=== PATIENT | female | born 1960 | race Caucasian/White ===

== ENCOUNTER 2016-12-27 10:48 | Inpatient (IN) | payer MEDICARE, OTHER ==
--- NOTE | 2016-12-27 12:37 | ED ---
Recheck HPI - General Source: patient, RN notes reviewed Mode of arrival: ambulatory Limitations: no limitations <Chelsey Marrero - Last Filed: 12/27/16 13:44> <Brian Wolf - Last Filed: 12/27/16 13:56> - General Chief Complaint: Recheck/Abnormal Lab/Rx Stated Complaint: SODIUM LOW Time Seen by Provider: 12/27/16 11:49 - History of Present Illness Initial Comments: Patient is a 56-year-old female since emergency room for evaluation. Patient states she has not been feeling himself for the past 2 weeks. Patient states out of the primary care provider last Wednesday and was told that her sodium was very low. Patient states she is on fluid restriction had labs redrawn on Wednesday. Patient states she got a phone call today stating that she needs to come to the emergency room because of low sodium. Patient denies chest pain. Patient denies shortness of breath. Patient denies nausea or vomiting. Patient denies abdominal pain. 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 Patient denies any history of any issues with her kidneys. She denies pain or burning during urination, trouble urinating or blood in urine. ( Chelsey Marrero) - Related Data Home Medications Medication Instructions Recorded Confirmed ALPRAZolam [Xanax] 1 mg PO DAILY PRN 03/15/16 12/27/16 traZODone HCL 100 mg PO HS 03/15/16 12/27/16 Divalproex Sodium [Depakote] 500 mg PO BID 12/27/16 12/27/16 FLUoxetine HCL [PROzac] 10 mg PO DAILY 12/27/16 12/27/16 Linaclotide [Linzess] 290 mcg PO QAM 12/27/16 12/27/16 traMADol HCl [Ultram] 50 mg PO DAILY PRN 12/27/16 12/27/16 Previous Rx's Medication Instructions Recorded OXcarbazepine [Trileptal] 300 mg PO BID tab 03/17/16 Allergies Allergy/AdvReac Type Severity Reaction Status Date / Time codeine Allergy Rash/Hives Verified 12/27/16 11:57 Review of Systems ROS Other: All systems not noted in ROS Statement are negative. <Chelsey Marrero - Last Filed: 12/27/16 13:44> ROS Other: All systems not noted in ROS Statement are negative. <JoBrian plummer - Last Filed: 12/27/16 13:56> ROS Statement: Those systems with pertinent positive or pertinent negative responses have been documented in the HPI. 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 History of Any Multi-Drug Resistant Organisms: None Reported Past Surgical History: Appendectomy, Bowel Resection, Cholecystectomy, Hysterectomy Additional Past Surgical History / Comment(s): rotator cuff repair. Past Anesthesia/Blood Transfusion Reactions: No Reported Reaction Past Psychological History: Anxiety, Bipolar, Depression Additional Psychological History / Comment(s): at time of admission pt denies having any problem with depression Smoking Status: Current every day smoker Past Alcohol Use History: None Reported Additional Past Alcohol Use History / Comment(s): pt states she is trying to quit smoking and is currently smoking 2 ppd Past Drug Use History: None Reported Additional Drug Use History / Comment(s): smoked last -- - Past Family History Father Family Medical History: Hypertension Mother Additional Family Medical History / Comment(s): Macular degeneration <Chelsey Marrero - Last Filed: 12/27/16 13:44> General Exam Limitations: no limitations General appearance: alert, in no apparent distress Head exam: Present: atraumatic, normocephalic, normal inspection Eye exam: Present: normal appearance ENT exam: Present: normal exam Neck exam: Present: normal inspection Respiratory exam: Present: normal lung sounds bilaterally. Absent: respiratory distress Cardiovascular Exam: Present: regular rate, normal rhythm, normal heart sounds GI/Abdominal exam: Present: soft, normal bowel sounds. Absent: distended, tenderness, guarding, rebound, rigid Extremities exam: Present: normal inspection Back exam: Present: normal inspection Neurological exam: Present: alert, oriented X3, CN II-XII intact, normal gait Psychiatric exam: Present: normal affect, normal mood Skin exam: Present: warm, dry, intact, normal color. Absent: rash <Chelsey Marrero - Last Filed: 12/27/16 13:44> General appearance: alert, in no apparent distress Head exam: Present: atraumatic, normocephalic, normal inspection Eye exam: Present: normal appearance, PERRL, EOMI. Absent: scleral icterus, conjunctival injection, periorbital swelling ENT exam: Present: normal exam, mucous membranes moist Neck exam: Present: normal inspection. Absent: tenderness, meningismus, lymphadenopathy Respiratory exam: Present: normal lung sounds bilaterally. Absent: respiratory distress, wheezes, rales, rhonchi, stridor Cardiovascular Exam: Present: regular rate, normal rhythm, normal heart sounds. Absent: systolic murmur, diastolic murmur, rubs, gallop, clicks GI/Abdominal exam: Present: soft, normal bowel sounds. Absent: distended, tenderness, guarding, rebound, rigid Extremities exam: Present: normal inspection, full ROM, normal capillary refill. Absent: tenderness, pedal edema, joint swelling, calf tenderness Back exam: Present: normal inspection Neurological exam: Present: alert, oriented X3, CN II-XII intact Psychiatric exam: Present: normal affect, normal mood Skin exam: Present: warm, dry, intact, normal color. Absent: rash <Brian Wolf - Last Filed: 12/27/16 13:56> - General Exam Comments Initial Comments: Sitting in exam room, no distress. (Chelsey Marrero) Course <Chelsey Marrero - Last Filed: 12/27/16 13:44> <Brian Wolf - Last Filed: 12/27/16 13:56> Vital Signs 12/27/16 11:08 Temperature 97 F L Pulse Rate 88 Respiratory 20 Rate Blood Pressure 111/7 O2 Sat by Pulse 99 Oximetry - Reevaluation(s) Reevaluation #1: 12/27/16 13:56 Patient remains without complaint, no neurological complaints, weak (Brian Wolf) Medical Decision Making - Lab Data Result diagrams: 12/27/16 12:49 12/27/16 12:49 <Chelsey Marrero - Last Filed: 12/27/16 13:44> - Lab Data Result diagrams: 12/27/16 12:49 12/27/16 12:49 <Brian Wolf - Last Filed: 12/27/16 13:56> - Medical Decision Making 48 female here for evaluation, patient with a near for evaluation of abnormal lab, hyponatremia, patient be admitted for correcting of sodium (Brian Wolf) - Lab Data Lab Results 12/27/16 12/27/16 12/27/16 Range/Units 12:49 12:49 12:58 WBC 4.6 (3.8-10.6) k/uL RBC 3.62 L (3.80-5.40) m/uL Hgb 12.2 (11.4-16.0) gm/dL Hct 34.9 (34.0-46.0) % MCV 96.3 (80.0-100.0) fL MCH 33.7 (25.0-35.0) pg MCHC 35.0 (31.0-37.0) g/dL RDW 12.5 (11.5-15.5) % Plt Count 264 (150-450) k/uL Neutrophils % 54 % Lymphocytes % 34 % Monocytes % 7 % Eosinophils % 1 % Basophils % 1 % Neutrophils # 2.5 (1.3-7.7) k/uL Lymphocytes # 1.6 (1.0-4.8) k/uL Monocytes # 0.3 (0-1.0) k/uL Eosinophils # 0.0 (0-0.7) k/uL Basophils # 0.1 (0-0.2) k/uL Sodium 119 L* (137-145) mmol/L Potassium 4.8 (3.5-5.1) mmol/L Chloride 88 L (98-107) mmol/L Carbon Dioxide 25 (22-30) mmol/L Anion Gap 6 mmol/L BUN 10 (7-17) mg/dL Creatinine 0.66 (0.52-1.04) mg/dL Est GFR (MDRD) Af Amer >60 (>60 ml/min/1.73 sqM) Est GFR (MDRD) Non-Af >60 (>60 ml/min/1.73 sqM) Glucose 82 (74-99) mg/dL Calcium 8.8 (8.4-10.2) mg/dL Total Bilirubin 0.4 (0.2-1.3) mg/dL AST 31 (14-36) U/L ALT 22 (9-52) U/L Alkaline Phosphatase 69 (38-126) U/L Total Protein 7.2 (6.3-8.2) g/dL Albumin 4.0 (3.5-5.0) g/dL Urine Color Yellow Urine Appearance Clear (Clear) Urine pH 7.0 (5.0-8.0) Ur Specific [place] 1.009 (1.001-1.035) Urine Protein Negative (Negative) Urine Glucose (UA) Negative (Negative) Urine Ketones Trace H (Negative) Urine Blood Negative (Negative) Urine Nitrite Negative (Negative) Urine Bilirubin Negative (Negative) Urine Urobilinogen <2.0 (<2.0) mg/dL Ur Leukocyte Esterase Negative (Negative) Disposition Decision Date: 12/27/16 <Chelsey Marrero - Last Filed: 12/27/16 13:44> <Brian Wolf - Last Filed: 12/27/16 13:56> Clinical Impression: Hyponatremia Disposition: ADMITTED IP TO THIS HOSP Condition: Stable Referrals: Emigdio Bagley MD [Primary Care Provider] - 1-2 days
[2016-12-27 13:03] LABS: Basophils # (A) 0.1 k/uL (0-0.2); Basophils % (A) 1 %; CH 34.3; CHCM 35.7; Eosinophils % (A) 1 %; HCT 34.9 % (34.0-46.0); HGB 12.2 gm/dL (11.4-16.0); Luc # (Auto) 0.14; Luc % (Auto) 3; Lymphocytes # (A) 1.6 k/uL (1.0-4.8); Lymphocytes % (A) 34 %; MCH 33.7 pg (25.0-35.0); MCV 96.3 fL (80.0-100.0); Mean Platelet Volume 7.1; Monocytes # (A) 0.3 k/uL (0-1.0); Monocytes % (A) 7 %; Neutrophils # (A) 2.5 k/uL (1.3-7.7); Neutrophils % (A) 54 %; RBC 3.62 m/uL (3.80-5.40); RDW 12.5 % (11.5-15.5); WBC 4.6 k/uL (3.8-10.6); WBC (Perox) 4.44
[2016-12-27 13:04] LABS: Appearance,Urine Clear (Clear); Bilirubin,Urine Negative (Negative); Glucose,Urine (UA) Negative (Negative); Ketones,Urine Trace (Negative); Leukocyte Esterase,Urine Negative (Negative); Nitrite,Urine Negative (Negative); Protein,Urine Negative (Negative); Specific Gravity,Urine 1.009 (1.001-1.035); UA Billing (MACRO vs. MICRO) CHEM; Urobilinogen,Urine <2.0 mg/dL (<2.0)
[2016-12-27 13:08] LABS: ALT 22 U/L (9-52); AST 31 U/L (14-36); Alkaline Phosphatase 69 U/L (38-126); Anion Gap 6 mmol/L; Blood Urea Nitrogen 10 mg/dL (7-17); Calcium 8.8 mg/dL (8.4-10.2); Carbon Dioxide 25 mmol/L (22-30); Chloride 88 mmol/L (98-107); Glucose 82 mg/dL (74-99); Non-African American GFR(MDRD) >60 (>60 ml/min/1.73 sqM); Potassium 4.8 mmol/L (3.5-5.1); Total Bilirubin 0.4 mg/dL (0.2-1.3); Total Protein 7.2 g/dL (6.3-8.2)
[2016-12-27 13:12] LABS: Sodium 119 mmol/L (137-145)
[2016-12-27] MEDS ORDERED: ONDANSETRON 4 MG/2 ML VIAL IVP PRN (13:45)
[2016-12-27] MEDS ORDERED: IBUPROFEN 400 MG TAB PO PRN (13:45)
[2016-12-27] MEDS ORDERED: NALOXONE 0.4 MG/ML 1 ML VIAL IV PRN (13:45)
[2016-12-27] MEDS ORDERED: ACETAMINOPHEN TAB 325 MG TAB PO PRN (13:45)
[2016-12-27] MEDS ORDERED: ALPRAZolam 0.5 MG TAB PO PRN (15:05)
[2016-12-27] MEDS ORDERED: traMADol 50 MG TAB PO PRN (15:05)
[2016-12-27] MEDS: SODIUM CHLORIDE 0.9% 1,000 ML IV SCH (15:40)
[2016-12-27 18:17] LABS: Creatinine,Urine Random 68.7 mg/dL
[2016-12-27 18:30] LABS: Potassium 4.5 mmol/L (3.5-5.1); Uric Acid 1.1 mg/dL (3.7-7.4)
[2016-12-27] MEDS: OXcarbazepine 300 MG TAB PO SCH (21:15)
[2016-12-27] MEDS: DIVALPROEX 500 MG TABLET.DR PO SCH (21:16)
[2016-12-27] MEDS: traZODone HCL 100 MG TAB PO SCH (22:46)
[2016-12-27] MEDS: QUEtiapine XR 200 MG TAB.ER.24H PO SCH (22:46)
[2016-12-27 22:49] LABS: Potassium 4.3 mmol/L (3.5-5.1)
--- NOTE | 2016-12-27 23:51 | HP ---
DATE OF ADMISSION: 12/27/2016 A 56-year-old white female with hyponatremia and weakness. HISTORY OF PRESENT ILLNESS: This is a 56-year-old white female, history of bipolar disorder and seizure disorder, has been on the same medicines for the past 2 years, developed hyponatremia 3 weeks ago. Her private doctor sent her to the emergency room today due to hyponatremia. Sodium was very low. She has been on fluid restriction. She states she drinks 6 to 8 drinks of water a day in big large glasses. Denies burning of the urine, trouble with urination. MEDICATIONS: 1. Xanax 1 mg daily. 2. Trazodone 100 daily. 3. Depakote 500 b.i.d. 4. Prozac 10 mg daily. 5. Linzess 290 daily. 6. Tramadol 50 mg daily. ALLERGIES: CODEINE. REVIEW OF SYSTEMS: A 14-point review of systems is negative except for the weakness. PAST MEDICAL HISTORY: 2 packs a day smoking. No alcohol or illicit drugs. FAMILY HISTORY: Father with hypertension. Mother with macular degeneration. PHYSICAL EXAM: VITAL SIGNS: Stable, afebrile. Temperature 97, pulse 88, respirations 18 to 20. CARDIOVASCULAR: S1, S2. LUNGS: Clear. GI: Soft. HEMATOLOGIC: Negative Homans. EXTREMITIES: No cyanosis, clubbing, edema. PSYCHIATRIC: Fair mood and normal affect. NEUROLOGIC: Alert and oriented x3. VASCULAR: Normal dorsalis pedis, posterior tibial, and radial pulse. OPHTHALMOLOGIC: Pupils equal, round and accommodation. She is in no acute distress. ASSESSMENT: 1. Hyponatremia. 2. Weakness secondary to above. 3. Bipolar disorder. 4. Seizure disorder. PLAN: Slow rehydration with normal saline at 75 an hour. Consult with renal physician for hyponatremia. Check labs in the morning.
[2016-12-28 02:55] LABS: Anion Gap 5 mmol/L; Blood Urea Nitrogen 10 mg/dL (7-17); Calcium 8.9 mg/dL (8.4-10.2); Carbon Dioxide 23 mmol/L (22-30); Chloride 91 mmol/L (98-107); Glucose 78 mg/dL (74-99); Non-African American GFR(MDRD) >60 (>60 ml/min/1.73 sqM); Potassium 4.6 mmol/L (3.5-5.1); Total Bilirubin 0.3 mg/dL (0.2-1.3); Total Protein 6.3 g/dL (6.3-8.2)
[2016-12-28 02:56] LABS: ALT 29 U/L (9-52); AST 25 U/L (14-36); Alkaline Phosphatase 94 U/L (38-126)
[2016-12-28 03:26] LABS: Sodium 119 mmol/L (137-145)
[2016-12-28] MEDS ORDERED: TOLVAPTAN 15 MG 1/2 TABLET PO ONE (06:19)
[2016-12-28] MEDS: SODIUM CHLORIDE 0.9% 1,000 ML IV SCH (06:58)
[2016-12-28] MEDS ORDERED: NON-FORMULARY DRUG (Linaclotide [Linzess] 290 MCG) PO SCH (09:00)
[2016-12-28] MEDS: FLUoxetine HCL 10 MG CAP PO SCH (09:08)
[2016-12-28] MEDS: OXcarbazepine 300 MG TAB PO SCH ×2 (09:09→22:07)
[2016-12-28] MEDS: DIVALPROEX 500 MG TABLET.DR PO SCH ×2 (09:09→20:50)
[2016-12-28 10:39] LABS: Basophils % (A) 0 %; CHCM 34.2; Eosinophils # (A) 0.1 k/uL (0-0.7); Eosinophils % (A) 1 %; HDW 2.14; HGB 12.9 gm/dL (11.4-16.0); Luc # (Auto) 0.09; Luc % (Auto) 2; Lymphocytes # (A) 0.9 k/uL (1.0-4.8); Lymphocytes % (A) 16 %; MCH 33.1 pg (25.0-35.0); MCHC 33.2 g/dL (31.0-37.0); MCV 99.8 fL (80.0-100.0); Mean Platelet Volume 6.9; Monocytes # (A) 0.3 k/uL (0-1.0); Monocytes % (A) 5 %; Neutrophils # (A) 4.4 k/uL (1.3-7.7); Neutrophils % (A) 77 %; WBC 5.7 k/uL (3.8-10.6); WBC (Perox) 5.46
[2016-12-28 10:58] LABS: Anion Gap 7 mmol/L; Calcium 9.2 mg/dL (8.4-10.2); Carbon Dioxide 23 mmol/L (22-30); Chloride 95 mmol/L (98-107); Glucose 90 mg/dL (74-99); Non-African American GFR(MDRD) >60 (>60 ml/min/1.73 sqM); Sodium 125 mmol/L (137-145); Total Bilirubin 0.6 mg/dL (0.2-1.3); Total Protein 7.2 g/dL (6.3-8.2)
[2016-12-28 11:04] LABS: AST 28 U/L (14-36); Blood Urea Nitrogen 10 mg/dL (7-17); Potassium 4.8 mmol/L (3.5-5.1)
[2016-12-28 11:05] LABS: ALT 22 U/L (9-52); Alkaline Phosphatase 64 U/L (38-126)
[2016-12-28] MEDS: DOCUSATE 100 MG CAP PO SCH ×2 (13:03→20:50)
--- NOTE | 2016-12-28 13:55 | CONS ---
DATE OF CONSULTATION: 12/28/2016 REASON FOR CONSULT: Hyponatremia. HISTORY OF PRESENT ILLNESS: Patient is a 56-year-old female with a history of seizures, maintained on Depakote and Trileptal. Patient was admitted to the hospital for abnormally low sodium done as outpatient through her primary care physician's office. Patient stated she had been feeling slightly weak prior to her admission, she did state that she has had low sodium levels on and off previously. Her sodium was at 119 mEq/L at the time of admission. Patient did get normal saline and she had worsened. Her urine osmolality was on the high side at 340 and patient did get a dose of tolvaptan around 6 in the morning. She is currently not on any IV fluids and her sodium came up to 125 mEq/L. PAST MEDICAL HISTORY: Anxiety, depression, bipolar disorder, history of bowel obstruction, constipation. PAST SURGICAL HISTORY: Appendectomy, bowel resection, cholecystectomy, hysterectomy, rotator cuff repair. SOCIAL HISTORY: Positive for smoking, no history of drug abuse or alcohol abuse. Medications at home included Xanax, trazodone, Depakote, Prozac, Linzess, Ultram, Trileptal. ALLERGIES: None. REVIEW OF SYSTEMS: As per day HPI, other systems negative. On examination, patient is comfortable, awake, alert, oriented x3, not in any acute distress. Blood pressure is 128/76, heart rate 73 per minute. She is afebrile. Examination of the heart S1 and S2. Examination of the lungs, bilateral breath sounds are heard. Abdomen is soft, nontender. Examination of the lower extremities shows no evidence of edema. 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 Labs show sodium up to 125, potassium 4.8. Hemoglobin 12.9 g/dL. ASSESSMENT: 1. Euvolemic hyponatremia secondary to syndrome of inappropriate antidiuretic hormone secretion, status post one dose of Samsca, currently significantly improved. I will hold off on significant fluid restriction since patient just got the Samsca this morning. At the time of discharge she should be placed again on fluid restriction and she may need small dose of demeclocycline as outpatient. We will repeat another sodium level in 6 hours time and hopefully patient can be discharged by tomorrow. 2. Asthma, currently controlled. 3. History of constipation and history of bowel obstruction, currently stable. PLAN: Repeat sodium in about 6 hours avoid. Avoid strict fluid restriction in the setting of Samsca to avoid rapid increase in serum sodium level and hopefully patient can be discharged by tomorrow. Thank you for this consultation. Will continue to follow the patient with you during her hospitalization.
[2016-12-28 16:41] LABS: Potassium 5.1 mmol/L (3.5-5.1)
[2016-12-28] MEDS ORDERED: DEXTROSE 5% IN WATER 1,000 ML IV ONE (16:56)
[2016-12-28 21:54] LABS: Potassium 4.3 mmol/L (3.5-5.1)
[2016-12-28] MEDS: QUEtiapine XR 200 MG TAB.ER.24H PO SCH (22:07)
[2016-12-28] MEDS: traZODone HCL 100 MG TAB PO SCH (22:07)
[2016-12-29 07:50] VITALS: BP 101/56; PULSE 90; RESP 20; TEMP 97.4
[2016-12-29] MEDS: OXcarbazepine 300 MG TAB PO SCH (08:16)
[2016-12-29] MEDS: DOCUSATE 100 MG CAP PO SCH (08:17)
[2016-12-29] MEDS: FLUoxetine HCL 10 MG CAP PO SCH (08:17)
[2016-12-29] MEDS: DIVALPROEX 500 MG TABLET.DR PO SCH (08:17)
--- NOTE | 2016-12-29 08:39 | PN ---
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 The patient will probably go home tomorrow. She is feeling less fatigued. She will go home on demeclocycline as an outpatient. Asthma is currently controlled. History constipation and bowel obstruction, stable. Fluid restriction. She will go home on medicine to keep her sodium up.
[2016-12-29 09:49] LABS: Potassium 4.6 mmol/L (3.5-5.1)
--- NOTE | 2017-01-02 20:30 | DS ---
DATE OF ADMISSION: 12/27/2016 DATE OF DISCHARGE: 12/29/2016 DISCHARGE MEDICATIONS: 1. Trazodone 100 at bedtime. 2. Xanax 1 mg daily. 3. Trileptal 300 b.i.d. 4. Fluoxetine 10 mg daily. 5. Ultram 50 mg daily. 6. Linzess 290 mcg daily. 7. Depakote 500 mg b.i.d. 8. Aspirin 81 mg daily. CONDITION: Stable. PROGNOSIS: Guarded. DISCHARGE DIAGNOSES: 1. Hyponatremia. 2. Seizure disorder. 3. Euvolemic hyponatremia. 4. Asthma. 5. History of constipation and bowel obstruction. HOSPITAL COURSE OF EVENTS: The patient was seen by renal physician for significant hyponatremia. Diagnosed with SIADH. She is to avoid strict fluid resuscitation in setting of ( ). The patient was stabilized and sent home in stable condition. Follow up as an outpatient.
== END 2016-12-29 14:06 | disposition home or self-care (01) | DRG 645 ==
LOC: EC 10:48 → 4MS4W 13:48
PROVIDERS: ADMIT Family Medicine; ATTEND Family Medicine
DX: E22.2 Syndrome of inappropriate secretion of antidiuretic hormone (principal); F31.9 Bipolar disorder, unspecified; G40.909 Epilepsy, unspecified, not intractable, without status epilepticus; J45.909 Unspecified asthma, uncomplicated; F17.200 Nicotine dependence, unspecified, uncomplicated; F41.9 Anxiety disorder, unspecified; Z79.82 Long term (current) use of aspirin; Z90.49 Acquired absence of other specified parts of digestive tract; Z79.899 Other long term (current) drug therapy
CPT/HCPCS: 36415; 80051; 80053; 80164; 81003; 82570; 83935; 84300; 84443; 84550; 85025; 99284

== ENCOUNTER 2017-01-02 12:14 | Inpatient (IN) | payer MEDICARE, OTHER ==
[2017-01-02] MEDS ORDERED: SODIUM CHLORIDE 0.9% 1,000 ML IV STA (13:54)
--- NOTE | 2017-01-02 13:58 | ED ---
General Adult HPI - General Chief complaint: Recheck/Abnormal Lab/Rx Stated complaint: Abnormal Labs Time Seen by Provider: 01/02/17 13:33 Source: patient, RN notes reviewed Mode of arrival: ambulatory Limitations: no limitations - History of Present Illness Initial comments: Patient is a pleasant 56-year-old female presenting to the emergency department complaining of reported hyponatremia. Patient has mild fatigue otherwise no complaints. Patient states it is not too concerning. Patient states she did have routine blood work done and was told her sodium was 116. Patient was just discharged from the hospital within the past couple of weeks for hyponatremia. Patient states she does take a lot of water however has been cutting back. Patient and she is on Trileptal and Depakote for history of seizure however is unclear if she needs to still be on them. Patient states her seizures were associated with benzodiazepine use and withdrawal previously. - Related Data Home Medications Medication Instructions Recorded Confirmed ALPRAZolam [Xanax] 1 mg PO DAILY PRN 03/15/16 01/02/17 traZODone HCL 200 mg PO HS 03/15/16 01/02/17 Divalproex Sodium [Depakote] 500 mg PO BID 12/27/16 01/02/17 Linaclotide [Linzess] 290 mcg PO QAM 12/27/16 01/02/17 traMADol HCl [Ultram] 50 mg PO DAILY PRN 12/27/16 01/02/17 Aspirin [Adult Low Dose Aspirin EC] 81 mg PO DAILY 12/29/16 01/02/17 L.acidoph,Paracasei, B.lactis 1 cap PO DAILY 01/02/17 01/02/17 [Probiotic] Multivitamins, Thera [Multivitamin 1 tab PO DAILY 01/02/17 01/02/17 (formulary)] Naproxen Sodium [Aleve] 220 mg PO Q12HR PRN 01/02/17 01/02/17 QUEtiapine FUMARATE [SEROquel] 300 mg PO HS 01/02/17 01/02/17 Previous Rx's Medication Instructions Recorded OXcarbazepine [Trileptal] 300 mg PO BID tab 03/17/16 Allergies Allergy/AdvReac Type Severity Reaction Status Date / Time codeine Allergy Rash/Hives Verified 01/02/17 14:05 Review of Systems ROS Statement: Those systems with pertinent positive or pertinent negative responses have been documented in the HPI. ROS Other: All systems not noted in ROS Statement are negative. Constitutional: Denies: fever Eyes: Denies: eye pain ENT: Denies: ear pain Respiratory: Denies: cough Cardiovascular: Denies: chest pain Endocrine: Reports: fatigue Gastrointestinal: Denies: abdominal pain Genitourinary: Denies: dysuria Musculoskeletal: Denies: back pain Skin: Denies: rash Neurological: Denies: weakness Past Medical History Additional Past Medical History / Comment(s): anxiety, depression/bipolar, bowel obstruction hx of iatraogenic bowel injury during gynecological case/ adhesions, constipation,emphysema. History of Any Multi-Drug Resistant Organisms: None Reported Past Surgical History: Appendectomy, Bowel Resection, Cholecystectomy, Hysterectomy Additional Past Surgical History / Comment(s): rotator cuff repair. Past Anesthesia/Blood Transfusion Reactions: No Reported Reaction Past Psychological History: Anxiety, Bipolar, Depression Additional Psychological History / Comment(s): at time of admission pt denies having any problem with depression Smoking Status: Current every day smoker Past Alcohol Use History: None Reported Additional Past Alcohol Use History / Comment(s): pt states she is trying to quit smoking and is currently smoking 2 ppd Past Drug Use History: None Reported Additional Drug Use History / Comment(s): smoked last -- - Past Family History Father Family Medical History: Hypertension Mother Additional Family Medical History / Comment(s): Macular degeneration General Exam Limitations: no limitations General appearance: alert, in no apparent distress Head exam: Present: atraumatic Eye exam: Present: normal appearance, PERRL ENT exam: Present: normal oropharynx Neck exam: Present: normal inspection Respiratory exam: Present: normal lung sounds bilaterally Cardiovascular Exam: Present: regular rate, normal rhythm GI/Abdominal exam: Present: soft. Absent: tenderness Extremities exam: Present: normal inspection. Absent: pedal edema, calf tenderness Neurological exam: Present: alert, CN II-XII intact. Absent: motor sensory deficit Expanded Cranial nerves: EOM's Intact: Normal Motor strength exam: RUE: 5, LUE: 5, RLE: 5, LLE: 5 Psychiatric exam: Present: normal affect, normal mood Skin exam: Present: normal color Course Vital Signs 01/02/17 01/02/17 12:56 14:40 Temperature 97.8 F Pulse Rate 88 79 Respiratory 20 18 Rate Blood Pressure 130/70 131/74 O2 Sat by Pulse 99 97 Oximetry Medical Decision Making - Medical Decision Making Patient reevaluated and resting comfortably in bed. Case discussed in detail with Dr. Washington who did recently discharged patient. He will readmit with consult for nephrology. - Lab Data Result diagrams: 01/02/17 14:27 01/02/17 14:27 Lab Results 01/02/17 01/02/17 Range/Units 14:27 14:27 WBC 5.1 (3.8-10.6) k/uL RBC 3.74 L (3.80-5.40) m/uL Hgb 12.2 (11.4-16.0) gm/dL Hct 36.5 (34.0-46.0) % MCV 97.4 (80.0-100.0) fL MCH 32.6 (25.0-35.0) pg MCHC 33.4 (31.0-37.0) g/dL RDW 12.7 (11.5-15.5) % Plt Count 284 (150-450) k/uL Neutrophils % 61 % Lymphocytes % 29 % Monocytes % 6 % Eosinophils % 1 % Basophils % 1 % Neutrophils # 3.1 (1.3-7.7) k/uL Lymphocytes # 1.5 (1.0-4.8) k/uL Monocytes # 0.3 (0-1.0) k/uL Eosinophils # 0.0 (0-0.7) k/uL Basophils # 0.0 (0-0.2) k/uL Sodium 122 L (137-145) mmol/L Potassium 4.2 (3.5-5.1) mmol/L Chloride 91 L (98-107) mmol/L Carbon Dioxide 20 L (22-30) mmol/L Anion Gap 11 mmol/L BUN 10 (7-17) mg/dL Creatinine 0.60 (0.52-1.04) mg/dL Est GFR (MDRD) Af Amer >60 (>60 ml/min/1.73 sqM) Est GFR (MDRD) Non-Af >60 (>60 ml/min/1.73 sqM) Glucose 87 (74-99) mg/dL Calcium 9.0 (8.4-10.2) mg/dL Phosphorus 3.5 (2.5-4.5) mg/dL Magnesium 1.5 L (1.6-2.3) mg/dL Total Bilirubin 0.3 (0.2-1.3) mg/dL AST 26 (14-36) U/L ALT 21 (9-52) U/L Alkaline Phosphatase 93 (38-126) U/L Total Protein 7.2 (6.3-8.2) g/dL Albumin 4.0 (3.5-5.0) g/dL TSH 0.668 (0.465-4.680) mIU/L Free T4 0.80 (0.78-2.19) ng/dL Free T3 pg/mL 2.8 (2.8-5.3) pg/ml Disposition Clinical Impression: Hyponatremia Disposition: ADMITTED IP TO THIS [facility] Time of Disposition: 15:32
[2017-01-02] MEDS ORDERED: ACETAMINOPHEN TAB 325 MG TAB PO STA (14:42)
[2017-01-02 14:58] LABS: Basophils % (A) 1 %; CH 33.8; CHCM 34.8; Eosinophils % (A) 1 %; HCT 36.5 % (34.0-46.0); HDW 2.13; HGB 12.2 gm/dL (11.4-16.0); Luc # (Auto) 0.17; Luc % (Auto) 3; Lymphocytes # (A) 1.5 k/uL (1.0-4.8); Lymphocytes % (A) 29 %; MCH 32.6 pg (25.0-35.0); MCHC 33.4 g/dL (31.0-37.0); MCV 97.4 fL (80.0-100.0); Monocytes # (A) 0.3 k/uL (0-1.0); Monocytes % (A) 6 %; Neutrophils # (A) 3.1 k/uL (1.3-7.7); Neutrophils % (A) 61 %; RBC 3.74 m/uL (3.80-5.40); RDW 12.7 % (11.5-15.5); WBC 5.1 k/uL (3.8-10.6); WBC (Perox) 5.24
[2017-01-02 15:00] LABS: ALT 21 U/L (9-52); AST 26 U/L (14-36); Alkaline Phosphatase 93 U/L (38-126); Anion Gap 11 mmol/L; Blood Urea Nitrogen 10 mg/dL (7-17); Carbon Dioxide 20 mmol/L (22-30); Chloride 91 mmol/L (98-107); Glucose 87 mg/dL (74-99); Magnesium 1.5 mg/dL (1.6-2.3); Non-African American GFR(MDRD) >60 (>60 ml/min/1.73 sqM); Phosphorous 3.5 mg/dL (2.5-4.5); Potassium 4.2 mmol/L (3.5-5.1); Sodium 122 mmol/L (137-145); Total Bilirubin 0.3 mg/dL (0.2-1.3); Total Protein 7.2 g/dL (6.3-8.2)
[2017-01-02] MEDS ORDERED: NALOXONE 0.4 MG/ML 1 ML VIAL IV PRN (15:34)
[2017-01-02] MEDS ORDERED: MAGNESIUM OXIDE 400 MG TAB PO STA (15:36)
[2017-01-02] MEDS: SODIUM CHLORIDE 0.9% 1,000 ML IV SCH ×2 (16:12→22:46)
[2017-01-02 16:32] LABS: Amorphous Sediment,Urine Rare /hpf; Appearance,Urine Clear (Clear); Bilirubin,Urine Negative (Negative); Glucose,Urine (UA) Negative (Negative); Ketones,Urine Negative (Negative); Leukocyte Esterase,Urine Small (Negative); Nitrite,Urine Negative (Negative); PH, Urine 6.5 (5.0-8.0); Particle Count 657; Protein,Urine Negative (Negative); RBC,Urine 1 /hpf (0-5); Specific Gravity,Urine 1.003 (1.001-1.035); Squamous Epithelial Cell,Urine 1 /hpf (0-4); UA Billing (MACRO vs. MICRO) MICRO; Urobilinogen,Urine <2.0 mg/dL (<2.0); WBC,Urine 2 /hpf (0-5)
[2017-01-02 17:32] VITALS: BMI 24.3
[2017-01-02] MEDS ORDERED: NAPROXEN 250 MG TAB PO PRN (19:19)
[2017-01-02] MEDS ORDERED: ALPRAZolam 0.5 MG TAB PO PRN (19:19)
[2017-01-02] MEDS: DIVALPROEX 500 MG TABLET.DR PO SCH (21:43)
[2017-01-02] MEDS: DEMECLOCYCLINE 150 MG TAB PO SCH (21:43)
[2017-01-02] MEDS: OXcarbazepine 300 MG TAB PO SCH (21:43)
[2017-01-03] MEDS: QUEtiapine 100 MG TAB PO SCH ×2 (03:36→22:37)
[2017-01-03] MEDS: traZODone HCL 100 MG TAB PO SCH ×2 (03:36→22:37)
[2017-01-03] MEDS: DIVALPROEX 500 MG TABLET.DR PO SCH ×2 (07:21→20:18)
[2017-01-03] MEDS: LACTOBACILLUS ACIDOPH & BULGAR 1 EACH PACKET PO SCH (07:21)
[2017-01-03] MEDS: ASPIRIN 81 MG CHEW PO SCH (07:21)
[2017-01-03] MEDS: DEMECLOCYCLINE 150 MG TAB PO SCH ×2 (07:22→20:18)
[2017-01-03] MEDS: OXcarbazepine 300 MG TAB PO SCH (07:22)
[2017-01-03 07:36] LABS: Basophils % (A) 0 %; CHCM 33.7; Eosinophils # (A) 0.1 k/uL (0-0.7); Eosinophils % (A) 1 %; HCT 35.7 % (34.0-46.0); HGB 11.8 gm/dL (11.4-16.0); Luc # (Auto) 0.11; Luc % (Auto) 2; Lymphocytes # (A) 1.2 k/uL (1.0-4.8); Lymphocytes % (A) 21 %; MCH 33.4 pg (25.0-35.0); MCV 101.1 fL (80.0-100.0); Mean Platelet Volume 6.7; Monocytes # (A) 0.3 k/uL (0-1.0); Monocytes % (A) 5 %; Neutrophils # (A) 4.1 k/uL (1.3-7.7); Neutrophils % (A) 70 %; RBC 3.53 m/uL (3.80-5.40); RDW 12.9 % (11.5-15.5); WBC 5.9 k/uL (3.8-10.6); WBC (Perox) 6.28
[2017-01-03 08:17] LABS: ALT 19 U/L (9-52); AST 24 U/L (14-36); Alkaline Phosphatase 69 U/L (38-126); Anion Gap 9 mmol/L; Blood Urea Nitrogen 8 mg/dL (7-17); Calcium 8.9 mg/dL (8.4-10.2); Carbon Dioxide 20 mmol/L (22-30); Chloride 99 mmol/L (98-107); Glucose 82 mg/dL (74-99); Magnesium 1.7 mg/dL (1.6-2.3); Non-African American GFR(MDRD) >60 (>60 ml/min/1.73 sqM); Potassium 4.8 mmol/L (3.5-5.1); Sodium 128 mmol/L (137-145); Total Bilirubin 0.5 mg/dL (0.2-1.3); Total Protein 6.8 g/dL (6.3-8.2)
--- NOTE | 2017-01-03 09:29 | P.NPCON ---
History of Present Illness - Reason for Consult hyponatremia - History of Present Illness Reason for consultation: Hyponatremia History of present illness: Patient is a 56-year-old female seen in renal consultation for hyponatremia. Patient was recently admitted to [facility] earlier this month for hyponatremia and at that time her sodium was as low as 119. 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 Patient was subsequently discharged home and had blood work done as an outpatient on Wednesday. Her sodium level came back at 116 and I advised her to go back to the hospital. When she came to the hospital last night her sodium level was 122. She was started on 0.9 saline at 75 mL an hour and sodium level is up to 128 this morning. Hemodynamically she is able. Denies chest pain or shortness of breath. Appetite is good. Does admit to drinking quite a bit of fluids but did cut back since her last shot. No vomiting or diarrhea. He does have history of seizures and is maintained on Trileptal as well as Depakote. She is also on demeclocycline. No other complaints at this time. Admits to good urine output. No hematuria or dysuria. Vital signs are stable. General: The patient appeared well nourished and normally developed. HEENT: Head exam is unremarkable. Neck is without jugular venous distension. LUNGS: Lungs are clear to auscultation and percussion. Breath sounds decreased. HEART: Rate and Rhythm are regular. First and second heart sounds normal. No murmurs, rubs or gallops. ABDOMEN: Abdominal exam reveals normal bowel sounds. Non-tender and non- distended. No evidence of peritonitis. EXTREMITITES: No clubbing, cyanosis, or edema. 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 History of Any Multi-Drug Resistant Organisms: None Reported Past Surgical History: Appendectomy, Bowel Resection, Cholecystectomy, Hysterectomy Additional Past Surgical History / Comment(s): rotator cuff repair. Past Anesthesia/Blood Transfusion Reactions: No Reported Reaction Past Psychological History: Anxiety, Bipolar, Depression Additional Psychological History / Comment(s): at time of admission pt denies having any problem with depression Smoking Status: Current every day smoker Past Alcohol Use History: None Reported Additional Past Alcohol Use History / Comment(s): pt states she is trying to quit smoking and is currently smoking 2 ppd Past Drug Use History: None Reported Additional Drug Use History / Comment(s): smoked last 09-19-15 - Past Family History Father Family Medical History: Hypertension Mother Additional Family Medical History / Comment(s): Macular degeneration Medications and Allergies Home Medications Medication Instructions Recorded Confirmed Type ALPRAZolam [Xanax] 1 mg PO DAILY PRN 03/15/16 01/02/17 History traZODone HCL 200 mg PO HS 03/15/16 01/02/17 History Divalproex Sodium [Depakote] 500 mg PO BID 12/27/16 01/02/17 History Linaclotide [Linzess] 290 mcg PO QAM 12/27/16 01/02/17 History traMADol HCl [Ultram] 50 mg PO DAILY PRN 12/27/16 01/02/17 History Aspirin [Adult Low Dose Aspirin EC] 81 mg PO DAILY 12/29/16 01/02/17 History L.acidoph,Paracasei, B.lactis 1 cap PO DAILY 01/02/17 01/02/17 History [Probiotic] Multivitamins, Thera [Multivitamin 1 tab PO DAILY 01/02/17 01/02/17 History (formulary)] Naproxen Sodium [Aleve] 220 mg PO Q12HR PRN 01/02/17 01/02/17 History QUEtiapine FUMARATE [SEROquel] 300 mg PO HS 01/02/17 01/02/17 History Allergies Allergy/AdvReac Type Severity Reaction Status Date / Time codeine Allergy Rash/Hives Verified 01/02/17 17:23 Physical Exam Vitals: Vital Signs Temp Pulse Resp BP Pulse Ox 01/03/17 07:29 83 16 01/03/17 07:00 97.6 F 83 16 119/62 97 01/03/17 04:00 86 12 01/03/17 00:00 86 12 01/02/17 23:00 97.4 F L 86 12 128/71 95 01/02/17 20:00 79 16 01/02/17 17:01 97.7 F 79 16 137/89 96 Intake and Output 01/02/17 01/03/17 01/03/17 22:59 06:59 14:59 Intake Total 260 600 250 Balance 260 600 250 Intake: Intake, IV Titration 260 600 Amount Sodium Chloride 0.9% 1, 260 600 000 ml @ 75 mls/hr IV . [id number] Rx#:[id number] Oral 250 Other: Weight 58.5 kg 58.5 kg 58.5 kg Patient Weight 01/04/17 06:59 Weight 58.5 kg Results - Lab Results Most recent lab results Calcium 8.9 mg/dL (8.4-10.2) 01/03/17 07:23 Phosphorus 3.5 mg/dL (2.5-4.5) 01/02/17 14:27 Magnesium 1.7 mg/dL (1.6-2.3) 01/03/17 07:23 01/03/17 07:23 01/03/17 07:23 Assessment and Plan Plan: Assessment: #1. Hyponatremia. There is a component of hypovolemia as sodium level did improve with normal saline from 122-128 this morning. There is also a component of SIADH which is from Depakote and Trileptal. #2. History of seizures. Plan: Continue with normal saline at 75 mL an hour. I will put her on a 1.2 L fluid restriction. Maintain demeclocycline. Repeat sodium level at 6 PM today. Patient may benefit from a neurology consultation to see if alternate can be found for Depakote and Trileptal to prevent recurrent hyponatremia. Thank you for the consultation. I will continue to follow the patient with you during his hospital stay.
[2017-01-03] MEDS ORDERED: Magnesium Replacement Protocol 1 EACH MISC MISCELLANE PRN (10:13)
[2017-01-03] MEDS: LINACLOTIDE 290 MCG PO SCH (10:50)
[2017-01-03] MEDS: MAGNESIUM SULFATE-D5W PMX 1 GM in DEXTROSE/WATER 1 100ML.BAG IVPB SCH ×2 (10:51→12:13)
[2017-01-03] MEDS: MULTIVITAMINS, THERA 1 EACH TAB PO SCH (12:14)
--- NOTE | 2017-01-03 14:45 | P.CNNES ---
History of Present Illness Consult date: 01/03/17 Reason for Consult: Patient admitted with recurrent hyponatremia possible due to Trileptal. History of Present Illness: This patient is a 56-year-old right-handed white female who was admitted to Hospital yesterday after she was found to have evidence of severe hyponatremia. Patient was just recently discharged from the hospital 2 weeks ago for an episode of hyponatremia. She was felt to have possibility of SIADH syndrome and did receive some treatment at the time. She was discharged home and blood work that was just done this past Wednesday revealed her serum sodium to be severely low at 116. She was advised to come back to the hospital which she did yesterday. Patient states she has a history of seizures diagnosed about a year ago for which she was placed on Depakote and Trileptal. She has been taking Trileptal 300 mg twice a day and Depakote 500 mg twice a day. She does have a history of bipolar disorder for which she is undergoing treatment as well. She is on multiple medications for treatment of the bipolar disorder prescribed by her primary care physician. The patient was treated for the hyponatremia and placed on 0.9 normal saline. Her serum sodium today as, slightly 228. We have reviewed the sodium levels today with the patient. When questioned about her seizure history apparently she had a withdrawal seizure about a year ago due to the use of Xanax. She essentially stopped using Xanax altogether. At the time about a year ago she was started on 2 seizure medications which include the Depakote and Trileptal. We have explained the side effect of Trileptal is the possibility of hyponatremia. She is not sure she requires seizure medication as she has not had seizures over the past 1 year. Given her serum sodium and recurrent hyponatremia we are recommending she consider weaning off of Trileptal. She should continue on Depakote at this time. Patient is agreeable and we will cut her Trileptal dose to 150 mg twice a day 2 doses. She will then get 1 dose of Trileptal 150 mg daily and then may discontinue Trileptal altogether. We will obtain a routine EEG tomorrow morning for further evaluation. She should follow-up with her primary care physician for further treatment of her bipolar disorder. Patient states that she would like to come off of more medications if possible. We recommend she discuss this further with her primary care physician. At this time we will continue her on weaning parameters for Trileptal today. We will continue to follow her serum sodium levels closely. She should follow-up with her primary care physician soon after discharge. Her overall prognosis at this time remains guarded. Patient denies any previous history of closed head injury or head trauma in the past. She has no previous history of seizures prior to the event that occurred about a year ago. Neurology is now been consulted for further evaluation and recommendations. Review of Systems Constitutional: Denies chills, Denies fever Eyes: denies blurred vision, denies pain Ears, nose, mouth and throat: Denies headache, Denies sore throat Cardiovascular: Denies chest pain, Denies shortness of breath Respiratory: Denies cough Gastrointestinal: Denies abdominal pain, Denies diarrhea, Denies nausea, Denies vomiting Genitourinary: Denies dysuria, Denies hematuria Musculoskeletal: Denies myalgias Integumentary: Denies pruritus, Denies rash Neurological: Denies numbness, Denies weakness Psychiatric: Denies anxiety, Denies depression Endocrine: Denies fatigue, Denies weight change Past Medical History Additional Past Medical History / Comment(s): anxiety, depression/bipolar, bowel obstruction hx of iatraogenic bowel injury during gynecological case/ adhesions, constipation,emphysema. History of Any Multi-Drug Resistant Organisms: None Reported Past Surgical History: Appendectomy, Bowel Resection, Cholecystectomy, Hysterectomy Additional Past Surgical History / Comment(s): rotator cuff repair. Past Anesthesia/Blood Transfusion Reactions: No Reported Reaction Past Psychological History: Anxiety, Bipolar, Depression Additional Psychological History / Comment(s): at time of admission pt denies having any problem with depression Smoking Status: Current every day smoker Past Alcohol Use History: None Reported Additional Past Alcohol Use History / Comment(s): pt states she is trying to quit smoking and is currently smoking 2 ppd Past Drug Use History: None Reported Additional Drug Use History / Comment(s): smoked last 09-19- - Past Family History Father Family Medical History: Hypertension Mother Additional Family Medical History / Comment(s): Macular degeneration Medications and Allergies Home Medications Medication Instructions Recorded Confirmed Type ALPRAZolam [Xanax] 1 mg PO DAILY PRN 03/15/16 01/02/17 History traZODone HCL 200 mg PO HS 03/15/16 01/02/17 History Divalproex Sodium [Depakote] 500 mg PO BID 12/27/16 01/02/17 History Linaclotide [Linzess] 290 mcg PO QAM 12/27/16 01/02/17 History traMADol HCl [Ultram] 50 mg PO DAILY PRN 12/27/16 01/02/17 History Aspirin [Adult Low Dose Aspirin EC] 81 mg PO DAILY 12/29/16 01/02/17 History L.acidoph,Paracasei, B.lactis 1 cap PO DAILY 01/02/17 01/02/17 History [Probiotic] Multivitamins, Thera [Multivitamin 1 tab PO DAILY 01/02/17 01/02/17 History (formulary)] Naproxen Sodium [Aleve] 220 mg PO Q12HR PRN 01/02/17 01/02/17 History QUEtiapine FUMARATE [SEROquel] 300 mg PO HS 01/02/17 01/02/17 History Allergies Allergy/AdvReac Type Severity Reaction Status Date / Time codeine Allergy Rash/Hives Verified 01/02/17 17:23 Physical Examination - Vital Signs Vital Signs: Vital Signs Temp Pulse Resp BP Pulse Ox 01/03/17 13:54 97.6 F 90 16 115/55 97 01/03/17 07:29 83 16 01/03/17 07:00 97.6 F 83 16 119/62 97 01/03/17 04:00 86 12 01/03/17 00:00 86 12 01/02/17 23:00 97.4 F L 86 12 128/71 95 01/02/17 20:00 79 16 01/02/17 17:01 97.7 F 79 16 137/89 96 Intake and Output 01/02/17 01/03/17 01/03/17 22:59 06:59 14:59 Intake Total 260 600 490 Output Total 300 Balance 260 600 190 Intake: Intake, IV Titration 260 600 Amount Sodium Chloride 0.9% 1, 260 600 000 ml @ 75 mls/hr IV . [id number] [facility] Rx#:[id number] Oral 490 Output: Urine 300 Other: # Voids 1 Weight 58.5 kg 58.5 kg 58.5 kg Patient Weight 01/04/17 06:59 Weight 58.5 kg - Constitutional General appearance: average body habitus, cooperative - EENT EENT: PERRL, mucous membranes moist - Respiratory Respiratory: lungs clear, normal breath sounds - Cardiovascular Cardiovascular: regular rate, normal S1, normal S2 Extremities: no peripheral edema bilaterally - Gastrointestinal Gastrointestinal: normoactive bowel sounds - Integumentary Integumentary: normal - Neurologic Cranial nerve examination: PERRL, EOMI, VFF, V1/V2/V3 grossly intact, face symmetric, tongue midline, intact gag reflex, intact corneal reflex, normal palatal elevation Speech examination: intact Sensorimotor examination: intact Detailed motor examination: grossly full strength in all extremities Detailed sensory examination: intact Reflex and gait examination: intact Reflexes: 1+: ankle, bicep, knee, tricep - Musculoskeletal Musculoskeletal: no pain - Psychiatric Psychiatric: mood/affect appropriate, cooperative Results - Laboratory Findings CBC and BMP: 01/03/17 07:23 01/03/17 07:23 Abnormal Lab Findings: Abnormal Labs 01/02/17 01/03/17 01/03/17 16:13 07:23 07:23 RBC 3.53 L MCV 101.1 H Sodium 128 L Carbon Dioxide 20 L Osmolality Ur Leukocyte Esterase Small H Amorphous Sediment Rare H 01/03/17 07:23 RBC MCV Sodium Carbon Dioxide Osmolality 257 L Ur Leukocyte Esterase Amorphous Sediment Assessment and Plan (1) Hyponatremia Status: Acute Code(s): E87.1 - HYPO-OSMOLALITY AND HYPONATREMIA (2) Seizure disorder Status: Acute Code(s): G40.909 - EPILEPSY, UNSP, NOT INTRACTABLE, WITHOUT STATUS EPILEPTICUS (3) Bipolar 1 disorder Status: Acute Code(s): F31.9 - BIPOLAR DISORDER, UNSPECIFIED (4) Hypokalemia due to inadequate potassium intake Status: Acute Code(s): E87.6 - HYPOKALEMIA Plan: This patient is a 56-year-old female was admitted to hospital for severe hyponatremia. Her admission serum sodium was 116. She has been having recurrent admissions to the hospital for treatment of hyponatremia. She has been taking Trileptal as one of her anticonvulsant medications as she has a history of seizures dating back a year ago. She has been taking combination of Depakote and Trileptal. We've explained that Trileptal side effect is severe hyponatremia. We are recommending she be weaned off the Trileptal and to continue on Depakote for further management of underlying history of seizures. She is currently taking Trileptal 300 mg twice a day. We will cut her Trileptal in half to 150 mg twice a day for 2 doses at which time she will then go to Trileptal 150 mg daily for 1 dose. She will then DC the Trileptal altogether. She is to be maintained on her current dose of Depakote. We will obtain routine EEG for further assessment of history of seizures. Her overall prognosis at this time remains guarded. She should follow-up with her primary care physician for further treatment of her bipolar disorder. Her overall prognosis at this time remains guarded. Continue with treatment as per nephrology and further management of the hyponatremia. Hopefully this correction of her anticonvulsant should keep her serum sodium levels in the normal range. Her overall prognosis at this time remains guarded. Time with Patient: Greater than 30
[2017-01-03] MEDS: traMADol 50 MG TAB PO PRN (16:14)
[2017-01-03] MEDS: SODIUM CHLORIDE 0.9% 1,000 ML IV SCH (16:17)
[2017-01-03] MEDS: OXcarbazepine 150 MG TAB PO SCH (20:19)
--- NOTE | 2017-01-03 21:15 | HP ---
DATE OF ADMISSION: 01/02/2017 CHIEF COMPLAINT: 56-year-old white female comes in with severe hyponatremia recurrence, discussed the case with nurses, talked to the patient about seizure medications, probably hyponatremia. The patient is willing to switch her seizure medications. We will consult a seizure doctor at this time. She was diagnosed 2 weeks ago with SIADH and was discharged home past Wednesday. Serum sodium was 116 at that time. Now she comes back and is still extremely low. She has been taking Trileptal 300 b.i.d. Depakote 500 b.i.d. history of bipolar disorder, multiple medications for hyponatremia, placed on 0.9 saline. Sodium was 128. She had a withdrawal seizure due to benzodiazepine abuse in the past. She is not sure if she ( ) seizure medication at this time. EEG will be performed to rule out seizure disorder. Monitor sodium and put her on declomeclizine which is indicated by renal physician on the last admission. REVIEW OF SYSTEMS: CONSTITUTIONAL: Weakness, fatigue otherwise fourteen-point review of systems negative. PAST MEDICAL HISTORY: Anxiety, depression, bipolar, bowel obstruction, history of iatrogenic bowel during gynecologic case with adhesions, constipation, emphysema. SURGERIES: Appendectomy, bowel resection, cholecystectomy, hysterectomy, rotator cuff repair, anxiety, bipolar depression. This is a current every day smoker. No alcohol. No illicit drugs. Smokes 2 packs a day. FAMILY HISTORY: Father hypertension. Mother macular degeneration. Home Medications: 1. Xanax 1 mg p.r.n. 2. ( ) 290 mcg daily. 3. Depakote 500 b.i.d. 4. Trazodone 200 q.h.s. 5. Tramadol 50 daily p.r.n. for pain. 6. Aspirin 81 mg a day. 7. Probiotics 1 daily. 8. Multivitamin 1 daily. 9. Naprosyn 220 q.12 hours. 10. Seroquel 300 q.h.s. ALLERGIES: CODEINE. PHYSICAL EXAM: VITAL SIGNS: Temperature 97.6, pulse 70s to 90s, respiratory rate is 16, blood pressure 151 to 130s over 60s to 70s. O2 95% to 97% on room air. CARDIOVASCULAR: S1, S2. LUNGS: Transmitted upper airway sounds. GI: Soft. HEMATOLOGIC: Negative Homans. PSYCH: Fair mood and affect. NEUROLOGIC: Alert and oriented x3. Ophthalmologic: Pupils equal, round and react to light and accommodation. Sodium 128, potassium 4.8. IMPRESSION: 1. Hyponatremia, acute. 2. Seizure disorder, acute. 3. Bipolar disorder. 4. Hypokalemia. Weaning the Trileptal. Continue Depakote.
[2017-01-04 07:11] LABS: ALT 23 U/L (9-52); AST 24 U/L (14-36); Alkaline Phosphatase 80 U/L (38-126); Anion Gap 8 mmol/L; Blood Urea Nitrogen 8 mg/dL (7-17); Carbon Dioxide 22 mmol/L (22-30); Chloride 101 mmol/L (98-107); Glucose 76 mg/dL (74-99); Magnesium 1.8 mg/dL (1.6-2.3); Non-African American GFR(MDRD) >60 (>60 ml/min/1.73 sqM); Potassium 4.8 mmol/L (3.5-5.1); Sodium 131 mmol/L (137-145); Total Bilirubin 0.3 mg/dL (0.2-1.3); Total Protein 6.3 g/dL (6.3-8.2)
[2017-01-04 07:55] LABS: Basophils % (A) 1 %; CH 33.8; CHCM 34.2; Eosinophils # (A) 0.1 k/uL (0-0.7); Eosinophils % (A) 1 %; HCT 35.1 % (34.0-46.0); HDW 2.23; HGB 12.2 gm/dL (11.4-16.0); Luc # (Auto) 0.11; Luc % (Auto) 3; Lymphocytes # (A) 1.4 k/uL (1.0-4.8); Lymphocytes % (A) 39 %; MCH 34.4 pg (25.0-35.0); MCHC 34.7 g/dL (31.0-37.0); MCV 99.1 fL (80.0-100.0); Mean Platelet Volume 7.1; Monocytes # (A) 0.3 k/uL (0-1.0); Monocytes % (A) 9 %; Neutrophils # (A) 1.8 k/uL (1.3-7.7); Neutrophils % (A) 47 %; RBC 3.54 m/uL (3.80-5.40); RDW 12.7 % (11.5-15.5); WBC 3.7 k/uL (3.8-10.6); WBC (Perox) 3.66
[2017-01-04] MEDS: DIVALPROEX 500 MG TABLET.DR PO SCH ×2 (07:57→19:53)
[2017-01-04] MEDS: OXcarbazepine 150 MG TAB PO SCH (07:57)
[2017-01-04] MEDS: LACTOBACILLUS ACIDOPH & BULGAR 1 EACH PACKET PO SCH (07:57)
[2017-01-04] MEDS: ASPIRIN 81 MG CHEW PO SCH (07:57)
[2017-01-04] MEDS: LINACLOTIDE 290 MCG PO SCH (07:57)
[2017-01-04] MEDS: DEMECLOCYCLINE 150 MG TAB PO SCH ×2 (07:57→19:53)
[2017-01-04] MEDS: SODIUM CHLORIDE 0.9% 1,000 ML IV SCH (07:58)
[2017-01-04] MEDS ORDERED: LACTULOSE 20 GM/30 ML CUP PO ONE (12:20)
[2017-01-04] MEDS: MULTIVITAMINS, THERA 1 EACH TAB PO SCH (12:46)
--- NOTE | 2017-01-04 13:12 | PN ---
Patient is seen for followup for hyponatremia. She was readmitted with serum sodium of about 122. Patient had tolvaptan on her last visit and her serum sodium was close to 133 mmHg at the time of discharge. This time she was maintained on normal saline. Her sodium has come up to 134 and patient states that she wants to go home. I have advised her that we need to monitor her serum sodium level without any IV saline or the medications to ensure that she is able to maintain her sodium level as outpatient. Patient is adamant that she wants to go home today. I have advised her that we will need to repeat labs tomorrow as well as day after tomorrow as outpatient if she is discharged. On examination, blood pressure is 109/72, heart rate 88 per minute. She is afebrile. EXAMINATION OF THE HEART: S1 and S2. EXAMINATION OF THE LUNGS: Decreased breath sounds in the bases. ABDOMEN: Soft, nontender. Examination of the lower extremities shows no evidence of edema. HEEL BLACKER exam is grossly intact. Labs show sodium 131, potassium 4.8, serum creatinine 0.6 mg/dL. ASSESSMENT: Hyponatremia, currently hypovolemic and improving with normal saline. I will stop the normal saline and check her sodium level off of the IV normal saline. The patient is also being considered for discontinuation of Trileptal and Depakote, which was started secondary to her being addicted to benzodiazepines. PLAN: DC normal saline. Repeat labs in the a.m. as well as day after tomorrow if patient is discharged. She should continue to maintain fluid restriction as outpatient and she should continue with the demeclocycline as well.
--- NOTE | 2017-01-04 16:14 | P.PN ---
Subjective 56-year-old admitted with recurrent hyponatremia likely due to Trileptal . Patient was just discharged 2 weeks prior for similar episode. Was felt the patient may have a possible SIADH syndrome. Patient states she has a history of a seizure disorder diagnosed a year ago and was placed on Depakote and Trileptal. Patient states she's been taken Trileptal 300 mg twice a day and Depakote 500 mg twice a day. Patient has been followed this admission by nephrology and neurology service the admission sodium 128. Sodium this morning 131 Objective - Vital Signs Vital signs: Vital Signs Temp 97.8 F 01/04/17 15:00 Pulse 97 01/04/17 15:00 Resp 16 01/04/17 15:00 BP 159/86 01/04/17 15:00 Pulse Ox 95 01/04/17 15:00 Intake & Output 01/03/17 01/04/17 01/04/17 18:59 06:59 18:59 Intake Total 490 562.5 800 Output Total 2700 500 Balance -2210 562.5 300 Weight 58.5 kg Intake: Intake, IV Titration 562.5 Amount Sodium Chloride 0.9% 1, 562.5 000 ml @ 75 mls/hr IV . [id number] [facility] Rx#:[id number] Oral 490 800 Output: Urine 2700 500 Other: Voiding Method Toilet # Voids 1 2 2 # Bowel Movements 1 - Exam Physical exam 56-year-old female resting comfortably in bed appears in no acute distress Lungs essentially clear adequate air movement Heart S1-S2 audible and regular Abdomen soft nontender Extremities no edema - Labs CBC & Chem 7: 01/04/17 06:29 01/04/17 06:29 Labs: Abnormal Lab Results - Last 24 Hours (Table) 01/03/17 01/04/17 01/04/17 Range/Units 16:22 06:29 06:29 WBC 3.7 L (3.8-10.6) k/uL RBC 3.54 L (3.80-5.40) m/uL Sodium 128 L 131 L (137-145) mmol/L Assessment and Plan Plan: Impression Present on admission hyponatremia sodium 128 Component of SIADH suspect due to medications Depakote and Trileptal Present on admission electrolyte abnormality hypokalemia due to inadequate potassium intake Bipolar disorder Seizure disorder Plan Continue recommendations by nephrology Continue recommendations by neurology further recommendations pending will follow DVT and GI prophylaxis Repeat labs in the morning The above dictated assessment and findings were discussed with dr dorman. Impression and the plan of care have been dictated as directed. Krystyna Kumar nurse practitioner acting as a scribe for dr dorman
[2017-01-04] MEDS: traMADol 50 MG TAB PO PRN (17:30)
[2017-01-04] MEDS: QUEtiapine 100 MG TAB PO SCH (22:15)
[2017-01-04] MEDS: traZODone HCL 100 MG TAB PO SCH (22:15)
--- NOTE | 2017-01-04 23:14 | P.PN ---
Subjective This patient is a 56-year-old female who is been admitted with symptoms of recurrent hyponatremia. Patient has a history of underlying seizure disorder for which she has been taking combination of Trileptal and Depakote. She was just admitted 2 weeks ago with similar episode of severe hyponatremia. She was readmitted due to hyponatremia on the day of admission when her serum sodium was 122. We had recommended yesterday that she be slowly weaned off of Trileptal. She is currently on Trileptal 150 mg for 2 doses today and tomorrow will only take one pill and discontinue Trileptal altogether. Her serum sodium this morning is 131. She has not had any further difficulties as we have been weaning the Trileptal. We will continue close neurological follow-up for the patient. Recommend to repeat her sodium level tomorrow morning. She may continue on Depakote monotherapy at this time. Her overall prognosis remains guarded. Objective - Vital Signs Vital signs: Vital Signs Temp 98.3 F 01/04/17 19:44 Pulse 78 01/04/17 19:44 Resp 18 01/04/17 19:44 BP 140/68 01/04/17 19:44 Pulse Ox 98 01/04/17 19:44 Intake & Output 01/04/17 01/04/17 01/05/17 06:59 18:59 06:59 Intake Total 562.5 800 200 Output Total 500 575 Balance 562.5 300 -375 Intake: Intake, IV Titration 562.5 Amount Sodium Chloride 0.9% 1, 562.5 000 ml @ 75 mls/hr IV . [id number] [facility] Rx#:[id number] Oral 800 200 Output: Urine 500 575 Other: Voiding Method Toilet Toilet # Voids 2 2 500 # Bowel Movements 1 - Exam Physical examination: PHYSICAL EXAMINATION: Patient is resting comfortably in bed. VITAL SIGNS: Blood pressure is [140/68]. Heart rate is [78]. Respiration is [18] . Temperature is [98.3]. HEENT: Head is atraumatic, neck is supple, there were no carotid bruits. CHEST: Lungs are clear to auscultation and percussion. CARDIAC: S1, S2 normal rate and rhythm. There is no murmur. ABDOMEN: Soft and nontender. Bowel sounds are present. EXTREMITIES: There is no pedal edema. Peripheral pulses are present. Neurological examination: Patient has a nonfocal neurological examination today. - Labs CBC & Chem 7: 01/04/17 06:29 01/04/17 06:29 Labs: Abnormal Lab Results - Last 24 Hours (Table) 01/04/17 01/04/17 Range/Units 06:29 06:29 WBC 3.7 L (3.8-10.6) k/uL RBC 3.54 L (3.80-5.40) m/uL Sodium 131 L (137-145) mmol/L Assessment and Plan (1) Hyponatremia Status: Acute Code(s): E87.1 - HYPO-OSMOLALITY AND HYPONATREMIA (2) Seizure disorder Status: Acute Code(s): G40.909 - EPILEPSY, UNSP, NOT INTRACTABLE, WITHOUT STATUS EPILEPTICUS (3) Bipolar 1 disorder Status: Acute Code(s): F31.9 - BIPOLAR DISORDER, UNSPECIFIED (4) Hypokalemia due to inadequate potassium intake Status: Acute Code(s): E87.6 - HYPOKALEMIA Plan: This patient is a 56-year-old female admitted with recurrent hyponatremia. She was just admitted 2 weeks ago with similar episode of severe hyponatremia. She has a history of underlying seizure disorder for which she has been taking combination of Trileptal and Depakote. We reviewed that the Trileptal most likely is the culprit for her hyponatremia. We have started weaning the patient off of Trileptal altogether. She may continue on Depakote monotherapy. Her serum sodium level today is 131. We will continue to wean her off Trileptal over the next 24 hours. She may continue on Depakote monotherapy at that time. Overall she seems to be making progress. We will recheck her serum sodium level tomorrow morning and give further recommendations. Overall prognosis at this time remains guarded.
[2017-01-05 01:19] VITALS: RESP 16
[2017-01-05 07:48] VITALS: BP 108/65; PULSE 71; TEMP 97.8
[2017-01-05] MEDS: LINACLOTIDE 290 MCG PO SCH (08:43)
[2017-01-05] MEDS: LACTOBACILLUS ACIDOPH & BULGAR 1 EACH PACKET PO SCH (08:44)
[2017-01-05] MEDS: ASPIRIN 81 MG CHEW PO SCH (08:44)
[2017-01-05] MEDS: DIVALPROEX 500 MG TABLET.DR PO SCH (08:44)
[2017-01-05] MEDS: DEMECLOCYCLINE 150 MG TAB PO SCH (08:44)
[2017-01-05] MEDS ORDERED: OXcarbazepine 150 MG TAB PO SCH (09:00)
[2017-01-05 09:33] LABS: ALT 22 U/L (9-52); AST 34 U/L (14-36); Alkaline Phosphatase 101 U/L (38-126); Anion Gap 10 mmol/L; Blood Urea Nitrogen 14 mg/dL (7-17); Carbon Dioxide 21 mmol/L (22-30); Chloride 101 mmol/L (98-107); Glucose 78 mg/dL (74-99); Non-African American GFR(MDRD) >60 (>60 ml/min/1.73 sqM); Potassium 5.2 mmol/L (3.5-5.1); Sodium 132 mmol/L (137-145); Total Bilirubin 0.4 mg/dL (0.2-1.3); Total Protein 7.7 g/dL (6.3-8.2)
--- NOTE | 2017-01-05 11:46 | P.DS ---
Providers Date of admission: 01/02/17 15:35 Expected date of discharge: 01/05/17 Attending physician: Helder Dorman Consults: 01/03/17 09:32 Consult Physician Urgent Consulting Provider: Di Huff Consult Reason/Comments: change seizure meds due to hyponatremia or stop them Do you want consulting provider notified?: Yes Primary care physician: [facility] Course: 56-year-old female who was recently discharged on December 29 at that time was treated for hyponatremia. Patient returns on the december for abnormal blood work. The sodium was noted to be 116. Patient states that she was drinking a lot of water but had been trying to cut back. Patient also is on Trileptal and Depakote for history of seizures. Patient also states that she thought her seizures were associated with benzodiazepine use and withdrawal previously used. Patient states patient this admission was followed by nephrology and neurology. Dr. Huff did see patient nephrology was weaning the patient off of the Trileptal. And on the day of discharge the Trileptal had been weaned off and patient was to be on monotherapy Depakote at this time. Additionally patient was to avoid any benzodiazepine. Additionally nephrology dr franks recommended the patient adhered to a strict fluid restriction no more than 1200 and a 24-hour period and to continue taking demeclocycline 150 twice a day follow patient in the office in 3 weeks. At the time of discharge the sodium was monitored closely and it was up to 132. The fluid restriction was reinforced to the patient. 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 Krystyna Kumar nurse practitioner acting as a scribe for dr dorman Plan - Discharge Summary New Discharge Prescriptions: Demeclocycline [Declomycin] 150 mg PO BID #60 tab Discharge Medication List traZODone HCL 200 mg PO HS 03/15/16 [History] Divalproex Sodium [Depakote] 500 mg PO BID 12/27/16 [History] Linaclotide [Linzess] 290 mcg PO QAM 12/27/16 [History] traMADol HCl [Ultram] 50 mg PO DAILY PRN 12/27/16 [History] Aspirin [Adult Low Dose Aspirin EC] 81 mg PO DAILY 12/29/16 [History] L.acidoph,Paracasei, B.lactis [Probiotic] 1 cap PO DAILY 01/02/17 [History] Multivitamins, Thera [Multivitamin (formulary)] 1 tab PO DAILY 01/02/17 [History ] Naproxen Sodium [Aleve] 220 mg PO Q12HR PRN 01/02/17 [History] QUEtiapine FUMARATE [SEROquel] 300 mg PO HS 01/02/17 [History] Demeclocycline [Declomycin] 150 mg PO BID #60 tab 01/05/17 [Rx] Follow up Appointment(s)/Referral(s): Emigdio Bagley MD [Primary Care Provider] - 1-2 days Di Huff MD [STAFF PHYSICIAN] - 1 Week Ana Franks MD [STAFF PHYSICIAN] - 1 Week Ambulatory/Diagnostic Orders: Comprehensive Metabolic Panel [LAB.AMB] Time Frame: 01/11/17, Location: Determined By Patient Activity/Diet/Wound Care/Special Instructions: A strict fluid restriction no more than 1200ml in 24 hours Discharge Disposition: HOME SELF-CARE
[2017-01-05] MEDS: MULTIVITAMINS, THERA 1 EACH TAB PO SCH (12:05)
[2017-01-05] MEDS: traMADol 50 MG TAB PO PRN (13:07)
--- NOTE | 2017-01-06 07:58 | PN ---
Patient is seen for followup for hyponatremia. Currently patient is going home. Her sodium has improved with normal saline. She is being discharged on demeclocycline along with fluid restriction, with repeat labs to be done in 2 to 3 days' time as outpatient. On examination today, blood pressure is 108/65, heart rate 71 per minute. She is afebrile. Examination of the heart, S1 and S2. Examination of the lungs, decreased breath sounds in the bases. Abdomen is soft, nontender. Examination of lower extremities shows no evidence of edema. Labs show potassium 5.2, sodium 132, serum creatinine 0.76. ASSESSMENT: Hyponatremia, initially hypovolemic and improved with normal saline, but patient has had euvolemic hyponatremia on her last admission. She is currently maintained on demeclocycline, which we will continue along with fluid restriction. She is advised to increase protein in her diet and we will repeat labs as outpatient in 2 to 3 days' time.
--- NOTE | 2017-01-06 09:08 | EEG ---
DATE OF SERVICE: 01/04/2017 INDICATIONS FOR EXAMINATION: This patient is a 56-year-old female being evaluated for recurrent episodes of hyponatremia. Patient with remote history of seizure disorder. Currently taking Trileptal and Depakote. Hyponatremia felt to be secondary to Trileptal use. AGE: 56Y EEG FINDINGS: A routine 21-channel, awake digital EEG recording was accomplished utilizing the 10 - 20 international system with bipolar and referential montages. The background activity in the most alert resting state consists of a low to medium amplitude, poorly-developed and poorly-sustained 6 Hz activity over the posterior head regions. This posterior rhythm attenuates to eye opening. There is a small amount of low amplitude 18 - 20 Hz beta activity seen maximally over the anterior head regions. Muscle and movement artifact was observed on a few occasions during the tracing. Hyperventilation was not performed. Photic stimulation at flash frequencies of 2 - 30 Hz produced a minimal occipital driving response. No epileptiform discharges were seen. IMPRESSION: This EEG is mildly abnormal in a diffuse fashion due to slowing of the EEG background. The EEG failed to reveal any focal, lateralized or epileptiform abnormalities. Clinical correlation is recommended.
== END 2017-01-05 13:53 | disposition home or self-care (01) | DRG 644 ==
LOC: EC 12:14 → 3SUR 15:35
PROVIDERS: ADMIT Family Medicine; ATTEND Family Medicine
DX: E22.2 Syndrome of inappropriate secretion of antidiuretic hormone (principal); G40.919 Epilepsy, unspecified, intractable, without status epilepticus; E86.1 Hypovolemia; E87.6 Hypokalemia; F17.210 Nicotine dependence, cigarettes, uncomplicated; F31.9 Bipolar disorder, unspecified; J43.9 Emphysema, unspecified; Z79.82 Long term (current) use of aspirin; Z79.899 Other long term (current) drug therapy; Z82.49 Family history of ischemic heart disease and other diseases of the circulatory system; Z88.5 Allergy status to narcotic agent
CPT/HCPCS: 36415; 80053; 80164; 80165; 80183; 81001; 83735; 83930; 83935; 84100; 84295; 84300; 84439; 84443; 84481; 85025; 95816; 96360; 96361; 99285

== ENCOUNTER 2017-02-05 07:51 | Day surgery (SDC) | payer MEDICARE, OTHER ==
[2017-02-03 11:43] VITALS: BMI 23.6
[~2017-02-05 07:51] MED LIST: DEXAMETHASONE SOD PHOSPHATE 10 MG/ML 1 ML VIAL IV ONE; LIDOCAINE 1% 20 ML VIAL (10MG/ML) FOR IV START INTRADERMA PRN; MIDAZOLAM 2 MG/2 ML VIAL IV PRN; ONDANSETRON 4 MG/2 ML VIAL IVP ONE; SCOPOLAMINE 1.5MG/72HR PATCH TRANSDERM ONE; ceFAZolin 2 GM in SODIUM CHLORIDE 0.9% 100 ML IVPB ONE
[2017-02-05] MEDS: LACTATED RINGERS 1,000 ML IV SCH ×4 (08:57→21:52)
[2017-02-05 09:24] LABS: Potassium 5.2 mmol/L (3.5-5.1)
[2017-02-05] MEDS ORDERED: LIDOCAINE 1% INJ 10MG/ML (20 ML MDV) ONE (09:55)
[2017-02-05] MEDS ORDERED: KETOROLAC 30 MG/ML 1 ML VIAL ONE (09:55)
[2017-02-05] MEDS ORDERED: SUCCINYLCHOLINE CHLORIDE 100 MG/5 ML SYR IV ONE (09:55)
[2017-02-05] MEDS ORDERED: MIDAZOLAM 2 MG/2 ML VIAL ONE (09:55)
[2017-02-05] MEDS ORDERED: ePHEDrine 50 MG/ML 1 ML AMP ONE (09:55)
[2017-02-05] MEDS ORDERED: fentaNYL (PF) 50 MCG/ML 2 ML AMP ONE (09:55)
[2017-02-05] MEDS ORDERED: PROPOFOL 10 MG/ML 20 ML VIAL IV ONE (09:55)
[2017-02-05] MEDS ORDERED: PHENYLEPHRINE-0.9% NACL SYG 1 MG/10 ML SYRINGE ONE (09:55)
[2017-02-05] MEDS ORDERED: ceFAZolin 1,000 MG in SODIUM CHLORIDE 0.9% 1,000 ML IRRIGATION ONE (10:27)
[2017-02-05] MEDS ORDERED: BUPIVACAINE (PF) 0.5% 30 ML VIAL SQ ONE ×2 (10:52→11:07)
--- NOTE | 2017-02-05 11:12 | FL ---
FLUOROSCOPY 2 seconds of fluoroscopy time were utilized during internal fixation of the right ankle. 2 images doc ument the procedure.
[2017-02-05] MEDS ORDERED: ONDANSETRON 4 MG/2 ML VIAL IVP PRN (11:27)
[2017-02-05] MEDS ORDERED: hydrOXYzine PAMOATE 25 MG CAP PO PRN (11:27)
[2017-02-05] MEDS ORDERED: TEMAZEPAM 15 MG CAP PO PRN (11:27)
[2017-02-05] MEDS ORDERED: HYDROmorphone 1 MG/ML 1 ML SYRINGE IVP PRN ×2 (11:27)
[2017-02-05] MEDS ORDERED: SENNOSIDES-DOCUSATE SODIUM 1 EACH TAB PO PRN (11:27)
[2017-02-05] MEDS ORDERED: HYDROcodone/APAP 5-325MG 1 EACH TAB PO PRN (11:27)
--- NOTE | 2017-02-05 11:49 | XR ---
EXAMINATION TYPE: XR ankle limited RT DATE OF EXAM ORDERED: 02/05/2017 HISTORY: s/p ORIF right ankle, assess alignment. COMPARISON: None. FINDINGS: There has been sideplate and screw fixation of the distal fibula. The medullary screw bangura sfixes a fracture of the medial malleolus. There are metallic skin sutures present both medially and laterally. The ankle is immobilized tendon dorsal SLAP. IMPRESSION: STATUS POST INTERNAL FIXATION OF BIMALLEOLAR FRACTURE OF THE RIGHT ANKLE.
[2017-02-05] MEDS: HYDROmorphone 1 MG/ML 1 ML SYRINGE IVP PRN ×6 (11:50→20:21)
[2017-02-05] MEDS ORDERED: LACTATED RINGERS 1,000 ML IV ONE ×2 (12:03)
[2017-02-05] MEDS ORDERED: FUROSEMIDE 20 MG TAB PO SCH (15:45)
[2017-02-05] MEDS: ceFAZolin 2 GM in SODIUM CHLORIDE 0.9% 100 ML IVPB SCH ×2 (17:13→23:07)
[2017-02-05] MEDS: NICOTINE 21MG/24HR PATCH TRANSDERM SCH (17:14)
[2017-02-05 20:18] VITALS: PULSE 82
[2017-02-05] MEDS: DIVALPROEX 500 MG TABLET.DR PO SCH (20:24)
[2017-02-05] MEDS ORDERED: traZODone HCL 100 MG TAB PO SCH (21:00)
[2017-02-05] MEDS ORDERED: QUEtiapine 200 MG TAB PO SCH (21:00)
--- NOTE | 2017-02-05 21:16 | CONS ---
DATE OF CONSULTATION: 02/05/2017. REASON FOR CONSULTATION: Medical management requested by Dr. Ward. CONSULTATION: This is a 56-year-old patient who has undergone a right ankle surgery, postoperatively, rather under effects of anesthesia, still rather drowsy along with some questions though. Chronic stable medical conditions include seizures, bipolar disorder, emphysema, lying in bed, lethargic but arousable to answer questions. Denies any chest pain, shortness of breath. REVIEW OF SYSTEMS: CONSTITUTIONAL: None. HEENT: None. RESPIRATORY: Occasional wheezing. CARDIOVASCULAR: None. GASTROINTESTINAL: None. GENITOURINARY: None. MUSCULOSKELETAL: Some pain in the right ankle. Dermatologic: None. LYMPHATIC: None. PSYCHIATRY: Bipolar disorder controlled. NEUROLOGICAL: None. Past history of seizure, bipolar disorder, emphysema. PAST SURGICAL HISTORY: Appendectomy, bowel resection, cholecystectomy, bilateral rotator cuff surgery. PSYCH HISTORY: Bipolar disorder. SOCIAL HISTORY: Smoking up to 2 packs a day. No alcohol. FAMILY HISTORY: Hypertension, macular degeneration. HOME MEDICATIONS: 1. Lasix 20 mg Wednesday, Wednesday and Wednesday. 2. Cymbalta 30 mg a day. 3. Aspirin 81 mg a day. 4. Vistaril 400 mg q.8 p.r.n. 5. [place] 5, 1 tablet q.4 p.r.n. 6. Naproxen 220 mg q.12 p.r.n. 7. Multivitamin 1 tablet p.o. daily. 8. Linzess 290 mcg p.o. daily. 9. Probiotic 1 capsule p.o. daily. 10. Depakote 500 mg p.o. b.i.d. 11. Trazodone 200 mg at bedtime. 12. Ultram 50 mg p.o. daily p.r.n. 13. Seroquel 400 mg q.h.s. 14. Senokot-S 2 tablets p.o. daily. 15. [place] 5, 1 to 2 tablets q.4 p.r.n. 16. Keflex 500 mg q.8h. 17. Aspirin 325 p.o. b.i.d. ALLERGIES: CODEINE. On examination, temperature 97.7, pulse 105, respiratory rate 16, blood pressure 103/54, pulse ox 95% on room air. GENERAL APPEARANCE: Average build, lying in bed, comfortable. EYES: Pupils equal. Conjunctivae normal. HEENT: External appearance of nose and ears normal. Oral cavity normal. NECK: JVD not raised. Mass not palpable. RESPIRATORY: Effort normal. LUNGS: Decreased breath sounds. CARDIOVASCULAR: First and second sounds normal. No edema. ABDOMEN: Soft, nontender. Liver and spleen not palpable. LYMPHATIC: No lymph node palpable in neck or axillae. PSYCHIATRY: Alert and oriented x3. Mood and affect normal. NEUROLOGICAL: Pupils equal. Cranial nerves pupils equal. Cranial nerves grossly intact. Power and sensation grossly intact. EXTREMITIES: Right ankle in a dressing. INVESTIGATIONS: Potassium 5.2. ASSESSMENT: 1. Right ankle surgery. 2. Chronic seizure disorder. 3. Bipolar disorder in remission. 4. Emphysema in a smoker. 5. Chronic nicotine dependence. The patient is a smoker. PLAN: Patient's home medications are resumed. For DVT prophylaxis, patient is on aspirin per orthopedics. Patient advised against smoking, given a nicotine patch. The patient should follow up with the family doctor when discharged.
[2017-02-06] MEDS: HYDROmorphone 1 MG/ML 1 ML SYRINGE IVP PRN (03:22)
[2017-02-06] MEDS: LACTATED RINGERS 1,000 ML IV SCH (03:27)
[2017-02-06] MEDS: HYDROcodone/APAP 5-325MG 1 EACH TAB PO PRN ×2 (06:15→10:54)
--- NOTE | 2017-02-06 07:48 | OP ---
DATE OF SERVICE: 02/05/2017 SURGEON: KARLA BOTELLO DO EMBOSSING PRESS OPERATOR MOLDED GOODS: Connie Tiwari NP PREOPERATIVE DIAGNOSIS: Displaced bimalleolar fracture of the right ankle. POSTOPERATIVE DIAGNOSIS: Displaced bimalleolar fracture of the right ankle. OPERATION: Open reduction and internal fixation displaced bimalleolar fracture of the right ankle. ANESTHESIA: ESTIMATED BLOOD LOSS: SPECIMENS REMOVED: COMPLICATIONS: OPERATIVE FINDINGS: DESCRIPTION OF PROCEDURE: The patient was taken to the operating room suite and placed in supine position. General inhalation anesthesia was performed by the Department of Anesthesiology. Betadine prep was carried out over the right ankle, leg. Sterile drapes applied in the usual manner. The pneumatic tourniquet was inflated to 350 mmHg. A lateral incision was developed over the distal fibula. Dissected through the subcutaneous tissue was performed. Fracture was identified. Soft tissue removed from the fracture with periosteal elevator. A Semi tubular locking plate was placed and was molded and positioned over the fracture. The plate was secured with six screws. X-rays of the ankle showed anatomic alignment. The procedure being carried out of the malleolar fracture. The soft tissue was elevated from the fracture. Fracture was reduced and a 4.0 malleolar screw was inserted and secured fracture fragment medially. X-rays were then obtained. Anatomical alignment noted. Both wounds were irrigated. The medial incision was approximated with #1 Vicryl suture. Subcutaneous suture with 2-0. Skin approximated with skin clips. Lateral wound was irrigated and the deep fascia approximated with Vicryl suture. 2-0 Vicryl was used subcutaneous tissue, followed by approximated with skin clips. Betadine, Adaptic, sterile pressure dressing was applied. The final x-rays documented the anatomic position. Posterior splint applied and pneumatic tourniquet was deflated. The patient was transferred to the recovery room in satisfactory postop condition. GROSS PATHOLOGY: Displaced bimalleolar fracture of the right ankle. LISA
[2017-02-06] MEDS ORDERED: NON-FORMULARY DRUG (Linaclotide [Linzess] 290 MCG) PO SCH (09:00)
[2017-02-06] MEDS ORDERED: ASPIRIN 81 MG CHEW PO SCH (09:00)
[2017-02-06] MEDS ORDERED: DULoxetine HCL 30 MG CAPSULE.DR PO SCH (09:00)
[2017-02-06] MEDS ORDERED: ASPIRIN 325 MG TAB PO SCH (09:00)
[2017-02-06 09:41] LABS: Basophils % (A) 0 %; CH 33.7; CHCM 33.4; Eosinophils # (A) 0.1 k/uL (0-0.7); Eosinophils % (A) 1 %; HCT 32.9 % (34.0-46.0); HDW 2.35; Luc # (Auto) 0.15; Luc % (Auto) 2; Lymphocytes % (A) 32 %; MCHC 33.6 g/dL (31.0-37.0); MCV 101.3 fL (80.0-100.0); Macrocytosis Slight; Mean Platelet Volume 6.7; Monocytes # (A) 0.4 k/uL (0-1.0); Monocytes % (A) 6 %; Neutrophils # (A) 3.7 k/uL (1.3-7.7); Neutrophils % (A) 58 %; RBC 3.25 m/uL (3.80-5.40); RDW 13.7 % (11.5-15.5); WBC 6.3 k/uL (3.8-10.6); WBC (Perox) 6.86
[2017-02-06 10:44] LABS: Anion Gap 8 mmol/L; Blood Urea Nitrogen 9 mg/dL (7-17); Calcium 9.1 mg/dL (8.4-10.2); Carbon Dioxide 24 mmol/L (22-30); Chloride 105 mmol/L (98-107); Glucose 93 mg/dL (74-99); Non-African American GFR(MDRD) >60 (>60 ml/min/1.73 sqM); Potassium 4.3 mmol/L (3.5-5.1); Sodium 137 mmol/L (137-145)
[2017-02-06 10:51] VITALS: BP 106/59; RESP 18; TEMP 96.9
[2017-02-06] MEDS: DIVALPROEX 500 MG TABLET.DR PO SCH (10:55)
[2017-02-06] MEDS: NICOTINE 21MG/24HR PATCH TRANSDERM SCH (10:55)
--- NOTE | 2017-02-06 10:56 | P.DS ---
Providers Date of admission: 02/05/2017 Expected date of discharge: 02/06/17 Attending physician: Jakob Ward Consults: 02/05/17 11:27 Consult Physician Routine Consulting Provider: William Romero Consult Reason/Comments: medical management Do you want consulting provider notified?: Yes Primary care physician: Stated None - Discharge Diagnosis(es) (1) Ankle fracture, bimalleolar, closed Patient is a pleasant 56-year-old female submitted the OR on February 05, 2017 to undergo ORIF of right bimalleolar ankle fracture. She desired proceed with surgical intervention after given informed consent including possible risks, complications, and benefits. She underwent the above procedure which she tolerated well without complication. Her postoperative hospital course has remained without complication. On day of discharge she is afebrile, vital signs stable, labs within acceptable ranges, wound benign, splint and bandage intact without evidence of active bleeding or dehiscence, neurovascular status intact with motor and sensation distally, less than 2 second cap refill is present distally, abdomen is soft nontender, denying new complaints, tolerating by mouth meds and diet, voiding without difficulty, passing flatus. Review of systems is negative for fever, chills, chest pain, shortness breath, nausea, vomiting, dizziness, numbness, tingling, calf pain, abdominal pain, headaches, slurred speech or other. Current Visit: Yes Status: Acute Priority: Medium Procedures: ORIF right bimalleolar ankle fracture Patient Condition at Discharge: Good Plan - Discharge Summary New Discharge Prescriptions: New Cephalexin [Keflex] 500 mg PO Q8HR #15 cap Aspirin 325 mg PO BID #60 tab HYDROcodone/APAP 5-325MG [[place] 5] 1 - 2 each PO Q4-6H PRN #40 tab PRN Reason: Pain Sennosides-Docusate Sodium [Senokot-S] 2 tab PO DAILY #30 tablet No Action traZODone HCL 200 mg PO HS traMADol HCl [Ultram] 50 mg PO DAILY PRN PRN Reason: Pain Linaclotide [Linzess] 290 mcg PO QAM Divalproex Sodium [Depakote] 500 mg PO BID Aspirin [Adult Low Dose Aspirin EC] 81 mg PO DAILY QUEtiapine FUMARATE [SEROquel] 400 mg PO HS Naproxen Sodium [Aleve] 220 mg PO Q12HR PRN PRN Reason: Pain Multivitamins, Thera [Multivitamin (formulary)] 1 tab PO DAILY L.acidoph,Paracasei, B.lactis [Probiotic] 1 cap PO DAILY DULoxetine HCL [Cymbalta] 30 mg PO DAILY hydrOXYzine PAMOATE [Vistaril] 400 mg PO Q4H PRN PRN Reason: Anxiety Hydrocodone/Acetaminophen [[place] 5-325 Tablet] 1 tab PO Q4H PRN PRN Reason: Pain Furosemide [Lasix] 20 mg PO MOWEFR Discharge Medication List traZODone HCL 200 mg PO HS 03/15/16 [History] Divalproex Sodium [Depakote] 500 mg PO BID 12/27/16 [History] Linaclotide [Linzess] 290 mcg PO QAM 12/27/16 [History] traMADol HCl [Ultram] 50 mg PO DAILY PRN 12/27/16 [History] Aspirin [Adult Low Dose Aspirin EC] 81 mg PO DAILY 12/29/16 [History] L.acidoph,Paracasei, B.lactis [Probiotic] 1 cap PO DAILY 01/02/17 [History] Multivitamins, Thera [Multivitamin (formulary)] 1 tab PO DAILY 01/02/17 [History ] Naproxen Sodium [Aleve] 220 mg PO Q12HR PRN 01/02/17 [History] QUEtiapine FUMARATE [SEROquel] 400 mg PO HS 01/02/17 [History] DULoxetine HCL [Cymbalta] 30 mg PO DAILY 02/03/17 [History] Furosemide [Lasix] 20 mg PO MOWEFR 02/03/17 [History] Hydrocodone/Acetaminophen [[place] 5-325 Tablet] 1 tab PO Q4H PRN 02/03/17 [ History] hydrOXYzine PAMOATE [Vistaril] 400 mg PO Q4H PRN 02/03/17 [History] Aspirin 325 mg PO BID #60 tab 02/05/17 [Rx] Cephalexin [Keflex] 500 mg PO Q8HR #15 cap 02/05/17 [Rx] HYDROcodone/APAP 5-325MG [[place] 5] 1 - 2 each PO Q4-6H PRN #40 tab 02/05/17 [Rx] Sennosides-Docusate Sodium [Senokot-S] 2 tab PO DAILY #30 tablet 02/05/17 [Rx] Follow up Appointment(s)/Referral(s): Jakob Ward DO [Doctor of Osteopathic Medicine] - 10 Days Activity/Diet/Wound Care/Special Instructions: Keep splint clean, dry, and intact Non-weightbearing to the right leg Follow up with Dr. Ward in 10 days Call [facility] with any questions or concerns, Discharge Disposition: HOME WITH HOME HEALTH SERVICES
[2017-02-06] MEDS ORDERED: HYDROcodone/APAP 7.5-325MG 1 EACH TAB PO PRN ×2 (11:01)
--- NOTE | 2017-02-07 11:04 | PN ---
DATE OF SERVICE: 02/06/2017 PRESENTING COMPLAINT: Ankle surgery. INTERVAL HISTORY: The patient is status post right ankle surgery much more perky today though has got some pain. Did tolerate a diet. No nausea or vomiting. No new issues. Patient does have help from her daughter at home she states. Review of systems done for constitutional, cardiovascular, GI, pulmonary, musculoskeletal; relevant findings as above. Current medications are reviewed. On examination, temperature 96.9, pulse not noted. Respiration 18, blood pressure 106/79, pulse ox 94% on room air. General appearance: Sitting up in bed, far more awake and perky. NECK: JVD not raised. Mass not palpable. RESPIRATORY: Effort normal. LUNGS: Decreased breath sounds. CARDIOVASCULAR: First and second sounds normal. No edema. ABDOMEN: Soft, nontender. Liver and spleen not palpable. PSYCH: Alert and oriented x3. Mood and affect normal. Right ankle in a dressing. INVESTIGATIONS: White count 6.3. ASSESSMENT: 1. Right ankle surgery. 2. Chronic seizure disorder. 3. Bipolar disorder in remission. 4. Emphysema in a smoker. 5. Chronic nicotine dependence. Patient is a smoker. PLAN: Care was discussed with the patient. If discharged, the patient is to followed up with the family doctor. Thank you Dr. Ward.
== END 2017-02-06 15:14 | disposition home health service (06) ==
LOC: OR 07:51 → 3SUR 11:24 → OR 02-06 15:14
PROVIDERS: ATTEND Orthopaedic Surgery
DX: S82.841A Displaced bimalleolar fracture of right lower leg, initial encounter for closed fracture (principal); G40.909 Epilepsy, unspecified, not intractable, without status epilepticus; F31.70 Bipolar disorder, currently in remission, most recent episode unspecified; J43.9 Emphysema, unspecified; S93.601A Unspecified sprain of right foot, initial encounter; S93.401A Sprain of unspecified ligament of right ankle, initial encounter; S93.432A Sprain of tibiofibular ligament of left ankle, initial encounter; S93.602A Unspecified sprain of left foot, initial encounter; X58.XXXA Exposure to other specified factors, initial encounter; F17.200 Nicotine dependence, unspecified, uncomplicated; R53.83 Other fatigue; Z79.2 Long term (current) use of antibiotics; Z79.82 Long term (current) use of aspirin; Z79.899 Other long term (current) drug therapy; Z88.5 Allergy status to narcotic agent
CPT/HCPCS: 80051; 80048; 85025; 73600; 27814; C1713; J2250; J1100; J0690 ×2; J2405; J2001; J3010; J1885; J1170 ×2; J2370; J0330; J2704

== ENCOUNTER 2019-05-02 15:21 | Emergency (ER) | payer MEDICARE, OTHER ==
[2019-05-02] MEDS ORDERED: SODIUM CHLORIDE 0.9% 1,000 ML IV STA ×2 (15:33)
[2019-05-02] MEDS ORDERED: SODIUM CHLORIDE 0.9% 500 ML 500 ML IV STA (15:33)
--- NOTE | 2019-05-02 15:39 | ED ---
Weakness HPI - General Stated complaint: low sodium Time Seen by Provider: 05/02/19 15:29 Source: RN notes reviewed, old records reviewed - History of Present Illness Initial comments: This is a 4-year-old female the ER for evaluation she presents today for evaluation regards to weakness. 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 does see nephrology. Patient states she is just been feeling weak for a few days now increasingly worsening with nausea no vomiting. No diarrhea. No significant current abdominal pain no fevers. No recent change in medications no illicit drug use or alcohol use. Patient states her significant weakness is increasing the nausea and inability to drink increasing her symptoms. Patient has had prior history of similar symptoms low sodium levels MD Complaint: generalized weakness -: days(s) Location: generalized Severity: mild Severity scale (1-10): 3 Quality: aching Consistency: constant Improves with: none Worsens with: none Context: history of similar Associated Symptoms: denies other symptoms - Related Data Home Medications Medication Instructions Recorded Confirmed Multivitamins, Thera [Multivitamin 1 tab PO DAILY 01/02/17 05/02/19 (formulary)] Alendronate Sodium [Fosamax] 70 mg PO DUNAWAY 05/02/19 05/02/19 LORazepam [Ativan] 1 mg PO DAILY PRN 05/02/19 05/02/19 LORazepam [Ativan] 2 mg PO HS 05/02/19 05/02/19 Omeprazole [PriLOSEC] 20 mg PO DAILY 05/02/19 05/02/19 Ondansetron [Zofran] 4 mg PO Q8H PRN 05/02/19 05/02/19 QUEtiapine [SEROquel] 100 mg PO HS 05/02/19 05/02/19 Sertraline [Zoloft] 100 mg PO DAILY 05/02/19 05/02/19 Sodium Bicarbonate Tab 650 mg PO BID 05/02/19 05/02/19 traZODone HCL 300 mg PO HS 05/02/19 05/02/19 Previous Rx's Medication Instructions Recorded Nitrofurantoin Monohyd/M-Cryst 100 mg PO Q12HR #14 cap 05/02/19 [Macrobid] Allergies Allergy/AdvReac Type Severity Reaction Status Date / Time codeine Allergy Rash/Hives Verified 05/02/19 15:59 Review of Systems ROS Statement: Those systems with pertinent positive or pertinent negative responses have been documented in the HPI. ROS Other: All systems not noted in ROS Statement are negative. Past Medical History Past Medical History: Seizure Disorder Additional Past Medical History / Comment(s): anxiety, depression/bipolar, bowel obstruction hx of iatraogenic bowel injury during gynecological case/adhesions, constipation,emphysema. Last seizure february of 2016 History of Any Multi-Drug Resistant Organisms: None Reported Past Surgical History: Appendectomy, Bowel Resection, Cholecystectomy, Hysterectomy Additional Past Surgical History / Comment(s): rotator cuff repair bilateral D&C X5 Past Anesthesia/Blood Transfusion Reactions: Postoperative Nausea & Vomiting (PONV) Past Psychological History: Anxiety, Bipolar, Depression Additional Psychological History / Comment(s): at time of admission pt denies having any problem with depression Smoking Status: Current every day smoker Past Alcohol Use History: None Reported Additional Past Alcohol Use History / Comment(s): pt states she is trying to qu it smoking and is currently smoking 2 ppd Past Drug Use History: None Reported Additional Drug Use History / Comment(s): smoked last 09-19- - Past Family History Father Family Medical History: Hypertension Mother Additional Family Medical History / Comment(s): Macular degeneration General Exam General appearance: alert, in no apparent distress Head exam: Present: atraumatic, normocephalic, normal inspection Eye exam: Present: normal appearance, PERRL, EOMI. Absent: scleral icterus, conjunctival injection, periorbital swelling ENT exam: Present: normal exam, mucous membranes moist Neck exam: Present: normal inspection. Absent: tenderness, meningismus, lymphadenopathy Respiratory exam: Present: normal lung sounds bilaterally. Absent: respiratory distress, wheezes, rales, rhonchi, stridor Cardiovascular Exam: Present: regular rate, normal rhythm, normal heart sounds. Absent: systolic murmur, diastolic murmur, rubs, gallop, clicks GI/Abdominal exam: Present: soft, normal bowel sounds. Absent: distended, tenderness, guarding, rebound, rigid Extremities exam: Present: normal inspection, full ROM, normal capillary refill. Absent: tenderness, pedal edema, joint swelling, calf tenderness Back exam: Present: normal inspection Neurological exam: Present: alert, oriented X3, CN II-XII intact Psychiatric exam: Present: normal affect, normal mood Skin exam: Present: warm, dry, intact, normal color. Absent: rash Course Vital Signs 05/02/19 15:43 Temperature 98.2 F Pulse Rate 87 Respiratory 18 Rate Blood Pressure 109/73 O2 Sat by Pulse 98 Oximetry - Reevaluation(s) Reevaluation #1: 05/02/19 16:55 Record is reviewed Reevaluation #2: 05/02/19 16:56 electrolytes look great patient is feeling better Medical Decision Making - Medical Decision Making 58 female the ER for evaluation of weakness. Patient is found to have urinary tract infection and electronically signed normal patient can be discharged home - Lab Data Result diagrams: 05/02/19 15:50 05/02/19 15:50 Lab Results 05/02/19 05/02/19 05/02/19 Range/Units 15:50 15:50 15:50 WBC 5.6 (3.8-10.6) k/uL RBC 4.88 (3.80-5.40) m/uL Hgb 15.2 (11.4-16.0) gm/dL Hct 46.3 H (34.0-46.0) % MCV 94.8 (80.0-100.0) fL MCH 31.2 (25.0-35.0) pg MCHC 32.9 (31.0-37.0) g/dL RDW 14.5 (11.5-15.5) % Plt Count 334 (150-450) k/uL Sodium 137 (137-145) mmol/L Potassium 4.1 (3.5-5.1) mmol/L Chloride 101 (98-107) mmol/L Carbon Dioxide 25 (22-30) mmol/L Anion Gap 11 mmol/L BUN 10 (7-17) mg/dL Creatinine 0.86 (0.52-1.04) mg/dL Est GFR (CKD-EPI)AfAm 86 (>60 ml/min/1.73 sqM) Est GFR (CKD-EPI)NonAf 74 (>60 ml/min/1.73 sqM) Glucose 91 (74-99) mg/dL Calcium 9.7 (8.4-10.2) mg/dL Phosphorus 3.7 (2.5-4.5) mg/dL Magnesium 1.9 (1.6-2.3) mg/dL Total Bilirubin 0.4 (0.2-1.3) mg/dL AST 31 (14-36) U/L ALT 14 (9-52) U/L Alkaline Phosphatase 87 (38-126) U/L Total Protein 8.3 H (6.3-8.2) g/dL Albumin 4.6 (3.5-5.0) g/dL Urine Color Yellow Urine Appearance Cloudy H (Clear) Urine pH 6.0 (5.0-8.0) Ur Specific [place] 1.024 (1.001-1.035) Urine Protein 1+ H (Negative) Urine Glucose (UA) Negative (Negative) Urine Ketones Negative (Negative) Urine Blood Small H (Negative) Urine Nitrite Negative (Negative) Urine Bilirubin Negative (Negative) Urine Urobilinogen 3.0 (<2.0) mg/dL Ur Leukocyte Esterase Large H (Negative) Urine RBC 8 H (0-5) /hpf Urine WBC >182 H (0-5) /hpf Ur Squamous Epith Cells 36 H (0-4) /hpf Amorphous Sediment Occasional H (None) /hpf Urine Bacteria Many H (None) /hpf Hyaline Casts 84 H (0-2) /lpf Urine Mucus Many H (None) /hpf Disposition Clinical Impression: UTI (urinary tract infection) Disposition: HOME SELF-CARE Condition: Good Instructions (If sedation given, give patient instructions): Urinary Tract Infection in Women (ED) Prescriptions: Nitrofurantoin Monohyd/M-Cryst [Macrobid] 100 mg PO Q12HR #14 cap Is patient prescribed a controlled substance at d/c from ED?: No Referrals: Lexi Casas MD [Primary Care Provider] - 1-2 days
[2019-05-02] MEDS ORDERED: ONDANSETRON 4 MG/2 ML VIAL IVP STA (16:00)
[2019-05-02 16:21] LABS: Amorphous Sediment,Urine Occasional /hpf; Appearance,Urine Cloudy (Clear); Bacteria,Urine Many /hpf; Bilirubin,Urine Negative (Negative); Blood,Urine Small (Negative); Color,Urine Yellow; Glucose,Urine (UA) Negative (Negative); Hyaline Casts,Urine 84 /lpf (0-2); Ketones,Urine Negative (Negative); Leukocyte Esterase,Urine Large (Negative); Mucus,Urine Many /hpf; Nitrite,Urine Negative (Negative); Protein,Urine 1+ (Negative); RBC,Urine 8 /hpf (0-5); Specific Gravity,Urine 1.024 (1.001-1.035); Squamous Epithelial Cell,Urine 36 /hpf (0-4); WBC,Urine >182 /hpf (0-5)
[2019-05-02 16:22] LABS: Albumin 4.6 g/dL (3.5-5.0); Calcium 9.7 mg/dL (8.4-10.2); Magnesium 1.9 mg/dL (1.6-2.3); Phosphorus 3.7 mg/dL (2.5-4.5); Potassium 4.1 mmol/L (3.5-5.1); Total Bilirubin 0.4 mg/dL (0.2-1.3); Total Protein 8.3 g/dL (6.3-8.2)
[2019-05-02 16:43] LABS: RBC 4.88 m/uL (3.80-5.40); WBC 5.6 k/uL (3.8-10.6)
[2019-05-02 16:44] LABS: HCT 46.3 % (34.0-46.0); HGB 15.2 gm/dL (11.4-16.0); MCH 31.2 pg (25.0-35.0); MCHC 32.9 g/dL (31.0-37.0); MCV 94.8 fL (80.0-100.0); Platelet Count 334 k/uL (150-450); RDW 14.5 % (11.5-15.5)
[2019-05-02] MEDS ORDERED: ONDANSETRON 4 MG ODT STARTER PACK 2 TAB BTL PO STA (16:54)
[2019-05-02] MEDS ORDERED: cefTRIAXone IN SWFI 1,000 MG/10 ML SYRINGE IVP STA (16:54)
[2019-05-02 17:10] LABS: Band Neutrophils % 1 %; Basophils # (M) 0.06 k/uL (0-0.2); Eosinophils # (M) 0.06 k/uL (0-0.7); Metamyelocytes # (M) 0.06 k/uL (0); Metamyelocytes % 1 %; Monocytes # (M) 0.22 k/uL (0-1.0); Neutrophils % (M) 51 %; Nucleated Red Blood Cells 0 /100 WBC (0-0); Total Cells Counted 100
[2019-05-02 18:38] VITALS: BP 118/75; PULSE 64; RESP 16; TEMP 98.4
== END 2019-05-02 18:00 | disposition home or self-care (01) ==
LOC: EC 15:21
DX: N39.0 Urinary tract infection, site not specified (principal); F41.9 Anxiety disorder, unspecified; F31.9 Bipolar disorder, unspecified; F17.210 Nicotine dependence, cigarettes, uncomplicated; Z79.899 Other long term (current) drug therapy; Z88.5 Allergy status to narcotic agent
CPT/HCPCS: 36415; 80053; 83735; 84100; 85025; 81001; 99285; 96374; 96375; 96361 ×2; J2405; J0696; S0119

== ENCOUNTER 2019-09-22 13:19 | Emergency (ER) | payer MEDICARE, OTHER ==
[2019-09-22 13:34] VITALS: RESP 18; TEMP 97.8
[2019-09-22] MEDS ORDERED: SODIUM CHLORIDE 0.9% 1,000 ML IV STA (13:40)
[2019-09-22 13:41] LABS: Glucose,Whole Blood 98 mg/dL (75-99)
--- NOTE | 2019-09-22 13:55 | ED ---
General Adult HPI - General Chief complaint: Dizziness Stated complaint: Lightheadedness Time Seen by Provider: 09/22/19 13:21 Source: patient, EMS, RN notes reviewed Mode of arrival: EMS Limitations: no limitations - History of Present Illness Initial comments: Patient is a pleasant 58-year-old female presenting to the emergency Department with an episode of lightheadedness. Symptoms lasted around 15 minutes then resolved. Patient felt if symptoms worsen she may pass out. Patient never passed out or lost consciousness. Patient did lower her self down to the ground. No headache. No confusion. Patient does have some mild nausea. No chest pain or dyspnea. No isolated area of weakness. No confusion. 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 - Related Data Home Medications Medication Instructions Recorded Confirmed Multivitamins, Thera [Multivitamin 1 tab PO DAILY 01/02/17 05/02/19 (formulary)] Alendronate Sodium [Fosamax] 70 mg PO DUNAWAY 05/02/19 05/02/19 LORazepam [Ativan] 1 mg PO DAILY PRN 05/02/19 05/02/19 LORazepam [Ativan] 2 mg PO HS 05/02/19 05/02/19 Omeprazole [PriLOSEC] 20 mg PO DAILY 05/02/19 05/02/19 Ondansetron [Zofran] 4 mg PO Q8H PRN 05/02/19 05/02/19 QUEtiapine [SEROquel] 100 mg PO HS 05/02/19 05/02/19 Sertraline [Zoloft] 100 mg PO DAILY 05/02/19 05/02/19 Sodium Bicarbonate Tab 650 mg PO BID 05/02/19 05/02/19 traZODone HCL 300 mg PO HS 05/02/19 05/02/19 Previous Rx's Medication Instructions Recorded Nitrofurantoin Monohyd/M-Cryst 100 mg PO Q12HR #14 cap 05/02/19 [Macrobid] Allergies Allergy/AdvReac Type Severity Reaction Status Date / Time codeine Allergy Rash/Hives Verified 09/22/19 13:23 Review of Systems ROS Statement: Those systems with pertinent positive or pertinent negative responses have been documented in the HPI. ROS Other: All systems not noted in ROS Statement are negative. Constitutional: Denies: fever Eyes: Denies: eye pain ENT: Denies: ear pain Respiratory: Denies: cough, dyspnea Cardiovascular: Denies: chest pain Endocrine: Denies: fatigue Gastrointestinal: Reports: nausea. Denies: abdominal pain, vomiting Genitourinary: Denies: dysuria Musculoskeletal: Denies: back pain Skin: Denies: rash Neurological: Denies: headache, weakness, confusion Past Medical History Past Medical History: Seizure Disorder Additional Past Medical History / Comment(s): anxiety, depression/bipolar, bowel obstruction hx of iatraogenic bowel injury during gynecological case/adhesions, constipation, emphysema. Last seizure february of 2016 History of Any Multi-Drug Resistant Organisms: None Reported Past Surgical History: Appendectomy, Bowel Resection, Cholecystectomy, Hysterectomy Additional Past Surgical History / Comment(s): rotator cuff repair bilateral D&C X5 Past Anesthesia/Blood Transfusion Reactions: Postoperative Nausea & Vomiting (PONV) Past Psychological History: Anxiety, Bipolar, Depression Smoking Status: Current every day smoker Past Alcohol Use History: None Reported Past Drug Use History: Marijuana - Past Family History Father Family Medical History: Hypertension Mother Additional Family Medical History / Comment(s): Macular degeneration General Exam Limitations: no limitations General appearance: alert, in no apparent distress Head exam: Present: normocephalic Eye exam: Present: normal appearance, PERRL, EOMI. Absent: nystagmus ENT exam: Present: normal oropharynx Neck exam: Present: normal inspection Respiratory exam: Present: normal lung sounds bilaterally Cardiovascular Exam: Present: regular rate, normal rhythm, normal heart sounds GI/Abdominal exam: Present: soft. Absent: tenderness Extremities exam: Present: normal inspection. Absent: pedal edema, calf tenderness Neurological exam: Present: alert, oriented X3, CN II-XII intact. Absent: motor sensory deficit Expanded Neurological exam: Present: protecting the airway Patient oriented to: Present: person, place, time Speech: Present: fluid speech Motor strength exam: RUE: 5, LUE: 5, RLE: 5, LLE: 5 Eye Response: (4) open spontaneously Motor Response: (6) obeys commands Verbal Response: (5) oriented Psychiatric exam: Present: normal affect, normal mood Skin exam: Present: normal color Course Vital Signs 09/22/19 09/22/19 13:23 14:26 Temperature 97.8 F Pulse Rate 74 77 Respiratory 18 18 Rate Blood Pressure 105/76 113/77 O2 Sat by Pulse 98 98 Oximetry EKG Findings - EKG Comments: EKG Findings:: Normal sinus rhythm 69. MO 116. QRS 86. QT 404. QTC 432. Normal axis. Normal QRS. No acute ST change. Medical Decision Making - Medical Decision Making Patient reevaluated and remained symptom-free. Patient was able to get up and use the restroom and walk around more than once without difficulty. Patient updated on results and need for follow-up. - Lab Data Result diagrams: 09/22/19 13:55 09/22/19 13:55 Lab Results 09/22/19 09/22/19 09/22/19 Range/Units 13:39 13:55 13:55 WBC 6.6 (3.8-10.6) k/uL RBC 4.13 (3.80-5.40) m/uL Hgb 13.0 (11.4-16.0) gm/dL Hct 39.7 (34.0-46.0) % MCV 96.1 (80.0-100.0) fL MCH 31.5 (25.0-35.0) pg MCHC 32.8 (31.0-37.0) g/dL RDW 13.1 (11.5-15.5) % Plt Count 308 (150-450) k/uL Neutrophils % 70 % Lymphocytes % 23 % Monocytes % 3 % Eosinophils % 1 % Basophils % 1 % Neutrophils # 4.7 (1.3-7.7) k/uL Lymphocytes # 1.6 (1.0-4.8) k/uL Monocytes # 0.2 (0-1.0) k/uL Eosinophils # 0.1 (0-0.7) k/uL Basophils # 0.1 (0-0.2) k/uL PT (9.0-12.0) sec INR (<1.2) APTT (22.0-30.0) sec Sodium 134 L (137-145) mmol/L Potassium 4.3 (3.5-5.1) mmol/L Chloride 101 (98-107) mmol/L Carbon Dioxide 23 (22-30) mmol/L Anion Gap 10 mmol/L BUN 12 (7-17) mg/dL Creatinine 0.86 (0.52-1.04) mg/dL Est GFR (CKD-EPI)AfAm 86 (>60 ml/min/1.73 sqM) Est GFR (CKD-EPI)NonAf 74 (>60 ml/min/1.73 sqM) Glucose 91 (74-99) mg/dL POC Glucose (mg/dL) 98 (75-99) mg/dL POC Glu Building Equipment Inspector Carline Estevez Calcium 9.3 (8.4-10.2) mg/dL Magnesium 1.7 (1.6-2.3) mg/dL Total Bilirubin 0.5 (0.2-1.3) mg/dL AST 35 (14-36) U/L ALT 14 (4-34) U/L Alkaline Phosphatase 97 (38-126) U/L Troponin I (0.000-0.034) ng/mL Total Protein 8.0 (6.3-8.2) g/dL Albumin 4.6 (3.5-5.0) g/dL 09/22/19 09/22/19 Range/Units 13:55 13:55 WBC (3.8-10.6) k/uL RBC (3.80-5.40) m/uL Hgb (11.4-16.0) gm/dL Hct (34.0-46.0) % MCV (80.0-100.0) fL MCH (25.0-35.0) pg MCHC (31.0-37.0) g/dL RDW (11.5-15.5) % Plt Count (150-450) k/uL Neutrophils % % Lymphocytes % % Monocytes % % Eosinophils % % Basophils % % Neutrophils # (1.3-7.7) k/uL Lymphocytes # (1.0-4.8) k/uL Monocytes # (0-1.0) k/uL Eosinophils # (0-0.7) k/uL Basophils # (0-0.2) k/uL PT 9.6 (9.0-12.0) sec INR 0.9 (<1.2) APTT 24.3 (22.0-30.0) sec Sodium (137-145) mmol/L Potassium (3.5-5.1) mmol/L Chloride (98-107) mmol/L Carbon Dioxide (22-30) mmol/L Anion Gap mmol/L BUN (7-17) mg/dL Creatinine (0.52-1.04) mg/dL Est GFR (CKD-EPI)AfAm (>60 ml/min/1.73 sqM) Est GFR (CKD-EPI)NonAf (>60 ml/min/1.73 sqM) Glucose (74-99) mg/dL POC Glucose (mg/dL) (75-99) mg/dL POC Glu Building Equipment Inspector ID Calcium (8.4-10.2) mg/dL Magnesium (1.6-2.3) mg/dL Total Bilirubin (0.2-1.3) mg/dL AST (14-36) U/L ALT (4-34) U/L Alkaline Phosphatase (38-126) U/L Troponin I <0.012 (0.000-0.034) ng/mL Total Protein (6.3-8.2) g/dL Albumin (3.5-5.0) g/dL - Radiology Data Radiology results: image reviewed (Chest x-ray shows scarring or atelectasis. No new focal infiltrate.) Disposition Clinical Impression: Lightheadedness Disposition: HOME SELF-CARE Condition: Stable Instructions (If sedation given, give patient instructions): Dizziness (ED) Additional Instructions: Please follow-up to primary care physician in the next day or 2 for recheck. Return for passing out, weakness or confusion, chest pain, worsening symptoms or other concerns. Is patient prescribed a controlled substance at d/c from ED?: No Referrals: Lexi Casas MD [Primary Care Provider] - 1-2 days Time of Disposition: 15:55
[2019-09-22 14:14] LABS: Basophils # (A) 0.1 k/uL (0-0.2); Basophils % (A) 1 %; Eosinophils # (A) 0.1 k/uL (0-0.7); Eosinophils % (A) 1 %; HCT 39.7 % (34.0-46.0); Lymphocytes # (A) 1.6 k/uL (1.0-4.8); Lymphocytes % (A) 23 %; MCH 31.5 pg (25.0-35.0); MCHC 32.8 g/dL (31.0-37.0); MCV 96.1 fL (80.0-100.0); Mean Platelet Volume 7.2; Monocytes # (A) 0.2 k/uL (0-1.0); Monocytes % (A) 3 %; Neutrophils # (A) 4.7 k/uL (1.3-7.7); Neutrophils % (A) 70 %; Platelet Count 308 k/uL (150-450); RBC 4.13 m/uL (3.80-5.40); RDW 13.1 % (11.5-15.5); WBC 6.6 k/uL (3.8-10.6)
--- NOTE | 2019-09-22 14:20 | XR ---
EXAMINATION TYPE: XR chest 2V DATE OF EXAM: 09/22/2019 COMPARISON: Chest x-ray September 14, 2015 HISTORY: History of seizure with syncope and weakness. TECHNIQUE: Frontal and lateral views of the chest are obtained. FINDINGS: There is chronic parenchymal changes in both bases without suspicious new focal air space opacity, pleural effusion, or pneumothorax seen. The cardiac silhouette size is within upper limits of normal with atherosclerotic change in thoracic aorta. The osseous structures are intact. IMPRESSION: Patchy bibasilar linear scarring and/or atelectasis remains present. No new focal infilt rate seen.
[2019-09-22 14:25] LABS: Albumin 4.6 g/dL (3.5-5.0); Calcium 9.3 mg/dL (8.4-10.2); Magnesium 1.7 mg/dL (1.6-2.3); Potassium 4.3 mmol/L (3.5-5.1); Total Bilirubin 0.5 mg/dL (0.2-1.3)
[2019-09-22 14:26] VITALS: PULSE 77
[2019-09-22 14:37] LABS: INR 0.9 (<1.2); Partial Thromboplastin Time 24.3 sec (22.0-30.0); Prothrombin Time 9.6 sec (9.0-12.0)
[2019-09-22 15:59] VITALS: BP 122/73
== END 2019-09-22 15:58 | disposition home or self-care (01) ==
LOC: EC 13:19
DX: R42 Dizziness and giddiness (principal); G40.909 Epilepsy, unspecified, not intractable, without status epilepticus; F31.9 Bipolar disorder, unspecified; F41.9 Anxiety disorder, unspecified; F17.200 Nicotine dependence, unspecified, uncomplicated; Z88.5 Allergy status to narcotic agent; Z79.899 Other long term (current) drug therapy
CPT/HCPCS: 36415; 71046; 80053; 83735; 84484; 85025; 85610; 85730; 93005; 96360; 96361; 99283; 99285

== ENCOUNTER 2019-09-22 17:06 | Emergency (ER) | payer MEDICARE, OTHER ==
[2019-09-22 17:12] VITALS: BP 109/73; PULSE 86; RESP 18; TEMP 97.8
--- NOTE | 2019-09-22 17:44 | ED ---
General Adult HPI - General Chief complaint: Dizziness Stated complaint: Dizzy Time Seen by Provider: 09/22/19 17:20 Source: patient Mode of arrival: ambulatory Limitations: no limitations - History of Present Illness Initial comments: 58-year-old female patient presents to the emergency department today for evaluation of dizziness. The patient was seen and evaluated in the emergency department today, discharge to the waiting room. When she stood up from her waiting room chair she became dizzy again and requested to be reevaluated. Patient had an episode of dizziness prior to coming in today. Patient has history of low sodium from SIADH was concerned she may be experiencing another episode. Patient denies any recent head injury. Denies chest pain or shortness of breath. Denies numbness, tingling, weakness or extremities. She denies any new symptoms since being discharged. Patient denies any recent rash, shortness breath, chest pain, abdominal pain, nausea, vomiting, diarrhea, constipation, back pain, numbness, tingling, hematuria, dysuria, urinary urgency, urinary frequency, headache, visual changes, or any other complaints. - Related Data Home Medications Medication Instructions Recorded Confirmed Multivitamins, Thera [Multivitamin 1 tab PO DAILY 01/02/17 05/02/19 (formulary)] Alendronate Sodium [Fosamax] 70 mg PO DUNAWAY 05/02/19 05/02/19 LORazepam [Ativan] 1 mg PO DAILY PRN 05/02/19 05/02/19 LORazepam [Ativan] 2 mg PO HS 05/02/19 05/02/19 Omeprazole [PriLOSEC] 20 mg PO DAILY 05/02/19 05/02/19 Ondansetron [Zofran] 4 mg PO Q8H PRN 05/02/19 05/02/19 QUEtiapine [SEROquel] 100 mg PO HS 05/02/19 05/02/19 Sertraline [Zoloft] 100 mg PO DAILY 05/02/19 05/02/19 Sodium Bicarbonate Tab 650 mg PO BID 05/02/19 05/02/19 traZODone HCL 300 mg PO HS 05/02/19 05/02/19 Previous Rx's Medication Instructions Recorded Nitrofurantoin Monohyd/M-Cryst 100 mg PO Q12HR #14 cap 05/02/19 [Macrobid] Allergies Allergy/AdvReac Type Severity Reaction Status Date / Time codeine Allergy Rash/Hives Verified 09/22/19 17:08 Review of Systems ROS Statement: Those systems with pertinent positive or pertinent negative responses have been documented in the HPI. ROS Other: All systems not noted in ROS Statement are negative. Past Medical History Past Medical History: Seizure Disorder Additional Past Medical History / Comment(s): anxiety, depression/bipolar, bowel obstruction hx of iatraogenic bowel injury during gynecological case/adhesions, constipation, emphysema. Last seizure february of 2016 History of Any Multi-Drug Resistant Organisms: None Reported Past Surgical History: Appendectomy, Bowel Resection, Cholecystectomy, Hystere ctomy Additional Past Surgical History / Comment(s): rotator cuff repair bilateral D&C X5 Past Anesthesia/Blood Transfusion Reactions: Postoperative Nausea & Vomiting (PONV) Past Psychological History: Anxiety, Bipolar, Depression Smoking Status: Current every day smoker Past Alcohol Use History: None Reported Past Drug Use History: Marijuana - Past Family History Father Family Medical History: Hypertension Mother Additional Family Medical History / Comment(s): Macular degeneration General Exam Limitations: no limitations General appearance: alert, in no apparent distress, other (This is a well- developed, well-nourished adult female patient in no acute distress. Vital signs upon presentation are temperature 97.8F, pulse 86, respirations 18, blood pressure 109/73, pulse ox 95% on room air.) Eye exam: Present: normal appearance, PERRL, EOMI. Absent: scleral icterus, conjunctival injection, nystagmus, periorbital swelling ENT exam: Present: normal exam, normal oropharynx, mucous membranes moist Respiratory exam: Present: normal lung sounds bilaterally. Absent: respiratory distress, wheezes, rales, rhonchi, stridor Cardiovascular Exam: Present: regular rate, normal rhythm, normal heart sounds. Absent: systolic murmur, diastolic murmur, rubs, gallop, clicks GI/Abdominal exam: Present: soft, normal bowel sounds. Absent: distended, tenderness, guarding, rebound, rigid Neurological exam: Present: alert, oriented X3, CN II-XII intact, other (Strength in all 4 extremities is 5/5.) Psychiatric exam: Present: normal affect, normal mood Skin exam: Present: warm, dry, intact, normal color. Absent: rash Course Vital Signs 09/22/19 17:08 Temperature 97.8 F Pulse Rate 86 Respiratory 18 Rate Blood Pressure 109/73 O2 Sat by Pulse 95 Oximetry Medical Decision Making - Medical Decision Making 58-year-old female patient is brought to the emergency department today for evaluation of dizziness. Physical examination was unremarkable. Patient was just discharged from the emergency department. Did review labs and imaging which were unremarkable. I discussed findings with the patient. She'll be discharged to follow-up with the primary care physician for recheck in 1-2 days. Return parameters were discussed in detail. She verbalizes understanding and agrees with this plan. Disposition Clinical Impression: Dizziness Disposition: HOME SELF-CARE Condition: Good Instructions (If sedation given, give patient instructions): Dizziness (ED) Additional Instructions: Follow-up with your primary care physician for recheck in 1-2 days. Return to emergency department immediately for any new, worsening, or concerning symptoms. Is patient prescribed a controlled substance at d/c from ED?: No Referrals: Lexi Casas MD [Primary Care Provider] - 1-2 days Time of Disposition: 17:44
== END 2019-09-22 18:00 | disposition home or self-care (01) ==
LOC: EC 17:06
DX: R42 Dizziness and giddiness (principal); F41.9 Anxiety disorder, unspecified; F31.9 Bipolar disorder, unspecified; F17.200 Nicotine dependence, unspecified, uncomplicated; Z79.899 Other long term (current) drug therapy; Z88.5 Allergy status to narcotic agent
CPT/HCPCS: 99283